=== PATIENT | female | born 1950 | race Caucasian/White ===

== ENCOUNTER 2025-06-23 12:22 | Inpatient (IN) | payer MEDICARE, SELFPAY ==
[2025-06-23] VITALS (16 sets, daily range): BP systolic 86–120; BP diastolic 53–97; BMI 24.0
[2025-06-23 09:26] LABS: Hematocrit 41.4 % (37.0-47.0); Hemoglobin 14.9 g/dL (12.0-16.0); Mean Corp Hgb Conc. 36.0 g/dL (33.0-37.0); Mean Corpuscular Volume 92.8 fL (81.0-99.0); Nucleated Red Blood Cells % 0 %; Platelet Count 164 10^3/uL (130-400); Red Cell Dist. Width 12.5 % (11.5-14.5)
--- NOTE | 2025-06-23 09:39 | ED.GENMED ---
History of Present Illness
General
Chief Complaint: Cardiac Symptoms
Source: patient
Exam Limitations: none
Time Seen by Provider: 06/23/25 09:17
Nursing documentation reviewed up to this point in time: agreed with
History of Present Illness
History of Present Illness:
Patient with history of hypertension and hypercholesterolemia, presents to ED secondary to worsening generalized weakness along with shortness of breath with exertion over the past 3 days. At onset of her symptoms, [place],
patient did experience upper chest pain, which lasted approximately 2 hours with spontaneous resolution. Patient has not had any recurrent chest pain since then. Chest pain described as discomfort, nonradiating, without any alleviating or
exacerbating factors. Denies fever or chills. Denies nausea or vomiting. Denies dizziness. Denies diaphoresis. Denies previous history of similar symptoms. Denies recent illness. Denies recent change in medications or diet.
Review of Systems
Review of Systems
Allergies reviewed?: Yes
All Other Systems: ROS reviewed and negative except as documented in HPI and ROS
Constitutional: Reports no symptoms
Respiratory: Reports trouble breathing
Cardiac: Reports chest pain
ABD/GI: Reports no symptoms
: Reports no symptoms
Musculoskeletal: Reports no symptoms
Skin: Reports no symptoms
Neurological: Reports weakness
Phy Exam
Physical Exam
Physical Exam:
Physical Exam
General: mild distress, not acutely ill. afebrile
Head: nc/at. eomi
Neck: supple. no meningeal signs.
Heart: bradycardic. no murmur
Lungs: no acute respiratory distress. clear bilaterally
Abdomen: normal bowel sounds. not tender.
Neuro: alert and oriented x 3. no focal neurological deficits
Skin: no rash
Psychiatric: well kept. interactive and cooperative
Extremities: no edema. no calf tenderness.
Course
Orders/Labs/Results
Orders:
Orders
06/23/25
Electrocardiogram (*1) Stat
Reason for Study: Chest Pain
06/23/25 09:06
Electrocardiogram (*1) Urgent
Reason for Study: Chest Pain
EKG- Treatment ONCE
06/23/25 09:17
Complete Blood Count/With Diff Urgent
Erythrocyte Sed Rate Urgent
Glycohemoglobin (HgbA1c) Urgent
NT-proBNP Urgent
Comment: ADD ON
Troponin I Urgent
06/23/25 09:38
Aspirin 325 mg PO NOW STA
06/23/25 09:41
CR Chest Portable - 1 View Urgent
Comment:
Reason For Exam: cp
Reason Study Needs to be Portable: Patient Unstable
06/23/25 Lunch
NPO
Allow oral meds: Yes
Allow clear liquids: No
NPO with Ice Chips: No
06/23/25 10:09
Heparin 4,000 units IV NOW STA
Nursing to Place Non Medication Order As Directed
Physician Order: PTT 6 hours after initial start of Heparin infusion
Above order entered?: Yes
06/23/25 10:12
Add On- LAB Routine
Tests Added?: ESR, CRP
06/23/25 10:13
PTT Urgent
Comment: Obtain baseline before beginning heparin infusion if not already collected
06/23/25 10:14
Echo 2D MMode Color/Doppler Urgent
Reason for Study: NSTEMI, CHB
06/23/25 10:15
Heparin 27918 Units/250 ml 25,000 units in 250 ml IV PER PROTOCOL
Weight to be used for heparin protocol in kilograms (kg):: 71.668
Protocol:: Cardiac Tx/Acute Coronary
PTT Goal Range to be used:: PTT 73 to 111 seconds
Order type:: Initial
INITIAL Infusion Dose (UNITS/KG/hr) & then follow protocol:: 12 units/kg/hr
Infusion Dose in UNITS/hr & then follow protocol (UNITS/hr):: 850
INFUSION RATE in mL/hr & then follow protocol (mL/hr):: 8.5
PTT less than or equal to 64 seconds:: Increase rate by 200 units/hr (+ 2 mL/hr)
PTT 64.1 to 72.9 seconds:: Increase rate by 100 units/hr (+ 1 mL/hr)
PTT 73 to 111 seconds:: Target Range. No change in rate.
PTT 111.1 to 130.9 seconds:: Decrease rate by 100 units/hr (- 1 mL/hr)
PTT 131 to 199.9 seconds:: HOLD for 1 hr. Then decrease rate by 200 units/hr (- 2 mL/hr)
PTT greater than or equal to 200 seconds:: HOLD for 2 hrs & Notify Provider. Then decrease by 200 units/hr (-
2 mL/hr)
Lab follow-up:: Each change, PTT q6h until 2 consecutive are therapeutic. Then PTT
daily.
06/23/25 10:25
Add On- LAB Urgent
Tests Added?: lyme progressive
06/23/25 10:36
Admit/Transfer Patient As Directed
Co-Sign Provider:
Level of Care: Inpatient admission
Assign to:: IVU
Physician / Group: Ronan
Diagnosis: NSTEMI, complete AVB
Reason for Hospitalization: NSTEMI, complete AVB
Expected length of stay greater than two midnights?: Yes
ELOS- Estimated Length of Stay in days: 5
I certify the patient meets the requirements for IP care: Yes
PRN Pain Medication Management As Directed
May give lesser potent ordered pain med per pt: Yes
preference::
Protocol:: Medication orders for pain may be administered in a
manner that supports deferring to patient preference
when the pt is:
- Requesting an ordered lesser potent pain medication.
Least to most potent pain medications are defined
as: acetaminophen < NSAID < tramadol < opioids
(morphine, oxycodone, hydromorphone).
- Requesting a lesser dose of the same medication IF
ORDERED.
- Requesting a less intrusive route of administration
if both routes are prescribed by the provider (PO <
IV).
06/23/25 10:37
Code Status As Directed
Resuscitation Status: Full Code
06/23/25 10:44
Add On- LAB Urgent
Tests Added?: TSH with reflex FT4, Lipids, HgbA1c
06/23/25 10:48
CARDIOLOGY CONSULT Urgent
Consulting Provider: Vishnu Bergeron
Was physician already notified: Yes
Reason for consult: NSTEMI, complete AVB
06/23/25 11:10
Add On- LAB Routine
Tests Added?: proBNP
06/23/25 11:24
Fentanyl Citrate/Pf [Sublimaze] 100 mcg .ROUTE .STK-MED ONE
Heparin 10,000 units .ROUTE .STK-MED ONE
Heparin 1000 Units/500 ml [Heparin] 1,000 units in 500 ml .ROUTE .STK-MED
Heparin Sodium,Porcine/Ns/Pf [Heparin 2000 Units/1000 ml] 2,000 unit in 1,000 ml .ROUTE .STK-MED
Lidocaine HCl/Pf [Xylocaine-Mpf 1% Vial] 100 mg .ROUTE .STK-MED ONE
Midazolam HCl [Versed] 2 mg .ROUTE .STK-MED ONE
Nitroglycerin [Tridil] 1,500 mcg .ROUTE .STK-MED ONE
Verapamil Injectable [Isoptin/Verapamil Injection] 5 mg .ROUTE .STK-MED ONE
06/23/25 11:37
C-Reactive Protein Urgent
Comment: ADDON
Cardiovascular Evaluation Urgent
Comprehensive Metabolic Panel Urgent
D-Dimer Urgent
Lyme Progressive Urgent
Comment: ADDON
PTT Urgent
Prothrombin Time Urgent
TSH Reflex To Free T4 Urgent
06/23/25 12:05
Lidocaine HCl/Pf [Xylocaine-Mpf 1% Vial] 100 mg .ROUTE .STK-MED ONE
06/23/25 13:08
Acetaminophen [Tylenol] 650 mg PO Q4HPRN PRN
Bisacodyl [Dulcolax] 10 mg RECTAL [id number] PRN
Docusate W/Senna [Senokot-S] 1 tablet PO BIDPRN PRN
Morphine Sulfate 2 mg IV Q4HPRN PRN
Nicotine [Nicoderm Transdermal] 14 mg TRANSDERM DAILY
Ondansetron Injectable [Zofran] 4 mg IV Q8HPRN PRN
Polyethylene Glycol Powder [Miralax] 17 grams PO DAILYPRN PRN
06/23/25 13:08
Urinalysis Reflex To Culture Urgent
Heparin Protocol- PTT Orders As Directed
PTT per Heparin protocol: -Obtain CBC and baseline PTT - if not already collected.
-Obtain PTT 6 hours from start of infusion. Then, every 6 hours until 2 consecutive
PTT's are therapeutic. Then, PTT Daily.
-With each rate change, obtain PTT every 6 hours until 2 consecutive PTT's are
therapeutic. Then, PTT Daily.
Activity As Directed
Activity Level: Out of Bed-Early Mobility
Notify MD As Directed
Notify physician if: PTT is greater than or equal to 200.
Vital Signs As Directed
Frequency: Per unit guidelines
06/23/25 13:42
COVID-19 Antigen Urgent
Source: Nasal Swab
Influenza A+B Rapid Molecular Urgent
BIA Source: Nasal Swab
Specimen Description:
06/23/25 21:08
Troponin I Q8H
06/23/25 22:00
Remove Patch [Remove Nicotine Patch] 1 patch REMOVE HS
06/24/25 05:08
Troponin I Q8H
06/24/25 06:00
Complete Blood Count/With Diff IN AM
Comprehensive Metabolic Panel IN AM
Magnesium IN AM
06/24/25 08:00
Losartan [Cozaar] 50 mg PO DAILY
Rosuvastatin Calcium [Crestor] 20 mg PO DAILY
06/25/25 06:00
Complete Blood Count/No Diff Q2D
Comment: notify provider: Platelet count < 130,000 or decrease by 50% from baseline
06/27/25 06:00
Complete Blood Count/No Diff Q2D
Comment: notify provider: Platelet count < 130,000 or decrease by 50% from baseline
06/29/25 06:00
Complete Blood Count/No Diff Q2D
Comment: notify provider: Platelet count < 130,000 or decrease by 50% from baseline
07/01/25 06:00
Complete Blood Count/No Diff Q2D
Comment: notify provider: Platelet count < 130,000 or decrease by 50% from baseline
07/03/25 06:00
Complete Blood Count/No Diff Q2D
Comment: notify provider: Platelet count < 130,000 or decrease by 50% from baseline
07/05/25 06:00
Complete Blood Count/No Diff Q2D
Comment: notify provider: Platelet count < 130,000 or decrease by 50% from baseline
07/07/25 06:00
Complete Blood Count/No Diff Q2D
Comment: notify provider: Platelet count < 130,000 or decrease by 50% from baseline
07/09/25 06:00
Complete Blood Count/No Diff Q2D
Comment: notify provider: Platelet count < 130,000 or decrease by 50% from baseline
Abnormal Lab Results
06/23/25 06/23/25
11:37
WBC 13.8 H 10^3/uL
(4.8-10.8)
MCH 33.4 H pg
(27.0-31.0)
Abs Immat Gran (auto) 0.1 H 10^3/uL
(0-0.05)
Absolute Neuts (auto) 12.0 H 10^3/uL
(1.4-6.5)
Absolute Lymphs (auto) 1.0 L 10^3/uL
(1.2-3.4)
Absolute Monos (auto) 0.7 H 10^3/uL
(0.1-0.6)
Neutrophils % 87.0 H %
(42.2-75.2)
Lymphocytes % 7.1 L %
(20.5-51.1)
APTT 80.1 H Sec
(23.4-35.0)
D-Dimer 0.85 H ug/mlFEU
(0.00-0.50)
Sodium 128 L mmol/L
(135-145)
Carbon Dioxide 21 L mmol/L
(22-30)
BUN 29 H mg/dl
(7-17)
Glucose 118 H mg/dl
(70-99)
AST 79 H U/L
(14-36)
ALT 63 H U/L
(0-35)
Troponin I 22.400 H* ng/ml
C-Reactive Protein 157.40 H mg/L
(0.0-10.00)
Total Protein 5.3 L g/dl
(6.3-8.2)
Albumin 3.3 L g/dl
(3.5-5.0)
06/23/25 09:17
06/23/25 11:37
Vital Signs
Initial and Last Documented VS:
Initial Vital Signs
Temp Pulse Resp BP Pulse Ox
98.8 F 42 16 120/97 96
06/23/25 09:02 06/23/25 09:02 06/23/25 09:02 06/23/25 09:02 06/23/25 09:02
Last Documented Vital Signs
Temp Pulse Resp BP Pulse Ox
98 F 41 20 106/80 97
06/23/25 13:03 06/23/25 15:00 06/23/25 13:03 06/23/25 15:00 06/23/25 13:03
MDM/Problems Addressed
MDM/Problems Addressed:
Patient evaluated immediately upon arrival with repeat EKG. EKG findings concerning for nonspecific ST changes along with complete heart block. Discussed with on-call Route Salesperson attending, Dr. Perry, who does not feel the patient needs emergent
catheterization, but most likely will require procedure during hospitalization.
Discussed with on-call cardiology, , and discussed all findings.
Patient given aspirin. Patient remains symptom-free at rest, while lying on stretcher. Blood pressure stable.
Patient placed on ZOLL pads
Initial troponin noted. Patient being evaluated by cardiology at bedside. Recommends heparin protocol
Critical care statement: A total of 40 minutes of critical care time was provided for this patient. This includes management of unstable vital signs, evaluation of the patient at bedside, reviewing the patient's pertinent medical records, discussion
with consultants, review of old EKGs and review of pertinent medical records. This time with separate from time utilized to perform the aforementioned documented procedures
*Pulse Oximetry
SaO2: 96
Oxygen Mode of Delivery: Room air
Patient hypoxic: no
*EKG
Interpreted by ED Provider?: Yes
EKG Intrepretation Date: 06/23/25
Heart Rate: 49
Rate: bradycardiac
Rhythm: sinus
Interval: third degree heart block
QRS Pattern: right bundle branch block
Ischemia: non-specific ST changes
*Critical Care Note
Total Time (30-74mins, 75-104mins- exclusive of procedures): 40 min
ED Attending Note
-
Portions of this chart may have been created with voice recognition software.� Occasional wrong word or��sound alike� substitutions may have occurred due to the inherent limitations of voice recognition software.
Discharge Plan
Departure
Patient Disposition: Admit
Date of Disposition: 06/23/25
Time of Disposition: 10:02
Admit to: IMU
Presentation/result/management discussed w/ accepting MD/DO: Hospitalist
Discharge Problem:
Non-ST elevation CA (NSTEMI), Complete heart block
Interventions
Interventions:
*Risk Screen - Suicide Last Done: 06/23/25 09:02
*General Assessment Last Done: 06/23/25 09:21
*Neglect/Abuse Screening Last Done: 06/23/25 09:02
*ED- Fall Risk Assessment Last Done: 06/23/25 09:02
*ED COVID-19 Vaccine History Last Done: 06/23/25 09:21
*Nursing Disposition Last Done: 06/23/25 11:25
ED- Cardiac Assessment Last Done: 06/23/25 09:21
ED- Pulmonary Assessment Last Done: 06/23/25 09:21
Discharge Date and Time
Discharge Date/Time: 06/23/25 11:25
[2025-06-23] MEDS: ASPIRIN 325 MG PO (09:40)
[2025-06-23 09:55] LABS: Troponin I 22.400 ng/ml
--- NOTE | 2025-06-23 10:12 | CON.CAR ---
Addendum entered and electronically signed by Parminder Choi MD 06/23/25 11:56:
Attending addendum: Patient seen and examined. PA note reviewed and findings independently confirmed by me. Briefly, this is a 75-year-old female who presented to [facility] with a history concerning for late presentation of a myocardial
infarction. She reported the onset of substernal chest pressure radiating across the chest on Saturday. Her symptoms persisted throughout the day and was associated with some nausea but no vomiting. By Saturday the symptoms began to improve but she
noted some dizziness and profound weakness today with minimal activity such as getting out of bed to brush her teeth. She is chronically maintained on oral Cardizem CD and losartan/hydrochlorothiazide. Home blood pressures are not well-controlled.
She also has a past history notable for hyperlipidemia.
Her electrocardiogram is notable for sinus rhythm with complete heart block. There was ST elevation in lead III and aVF. She has been chest pain-free for more than 48 hours and her troponin returned at 22.4 ng/mL.
Physical exam
GEN: AAO x 3.��No acute distress
HEENT:��NC/AT, sclera are anicteric,
NECK: Supple.��Normal JVP
LUNGS: Clear to bases bilaterally.��No wheezing or rhonchi
CV: Regular bradycardic. Normal S1/S2.��Murmur: None
ABD : Soft, NT, ND, No HSM.��Bowel sounds are present.
EXT: No CCE
NEURO: No focal neurologic deficits��
ECG: Normal sinus rhythm with complete heart block. ST elevation III and aVF
IMPRESSION:
-Late presentation of probable inferior wall VA complicated by complete heart block
-Hypertension
-Hyperlipidemia
-Tobacco abuse : Stopped 48 hours ago with chest discomfort
RECOMMENDATIONS:
-Patient will be referred for coronary angiography
-Escape rhythm in 40's.
-Further management decisions after angiogram completed.
-Will discuss further with EP service
Addendum entered and electronically signed by Jana Starks PA-C 06/23/25 11:13:
will also check lyme and TSH for completeness.
Original Note:
Consultation
Consultation Request
Date/Time Consultation Performed: 06/23/25
Requesting Provider: Dr. Morrison
Performing Provider: Jana Starks PA-C for Dr. Choi
Reason for Consultation: CHB
Medical History
-
Chief Complaint: weakness
History of Present Illness:
Patient is a 75-year-old female with past medical history of hypertension, hyperlipidemia, osteoarthritis, tobacco use who presents to [facility] ER today due to complaints of fatigue. She reports for the last several days she has felt lightheaded and
weak. Yesterday after taking her meds noted her BP and HR were low and today felt awful resulting in her coming to ER. On further questioning, patient reports on Saturday she developed chest discomfort which felt like a 'muscle pull' and wrapped
around to her back. She had associated nausea but no vomiting. She reports pain lingered for a while and does not think it resolved until Saturday. Denies current CP. EKG shows complete heart block with evidence of possible inferior infarct with Q
waves noted. Initial trop 22.4. Denies thyroid issues or recent tick bites, rashes. Cardiology consulted for evaluation.
PMH:
HTN
HLD
OA
Tobacco use
FH of CAD
Past Medical History
Past Medical History: Other (in HPI)
Social History
Tobacco: Smoker
Alcohol: None
Drug: None
Living: Alone
Employment: Retired
Family History
Family History: CAD
Allergies / Home Medications
Allergy/AdvReac Type Severity Reaction Status Date / Time
No Known Allergies Allergy Unverified 06/23/25 09:01
Review of Systems
-
History Source: Patient and Family
All other systems: Negative unless noted
Physical Exam
Vital Signs
Temp Pulse Resp BP Pulse Ox
98.8 F 42 16 120/97 96
06/23/25 09:02 06/23/25 09:02 06/23/25 09:02 06/23/25 09:02 06/23/25 09:41
Lab Results
06/23/25 09:17
Troponin I 22.400 ng/ml H* 06/23/25 09:17
Physical Exam
General: No Apparent Distress and Comfortable
HEENT: Normocephalic, Anicteric and Moist Mucous Membranes
Respiratory: Clear and Non Labored Respirations
Cardiac: S1/S2 and Regular Rhythm (bradycardic rhythm)
GI: Soft, Non Tender, Non Distended and Normal Bowel Sounds
Musculoskeletal: No Clubbing, No Cyanosis and No Edema
Skin: Warm and Dry
Neuro: AO x 3
Impression / Plan
-
Primary Box Toe Stitcher: none prior to admission
Assessment:
Presentation with weakness, fatigue
CP 06/20/25
Complete heart block
NSTEMI, suspected recent RCA infarct
Leukocytosis
HTN
HLD
OA
Tobacco use
FH of CAD
ECHO 06/23/25: pending
Plan:
-Patient presents for evaluation of weakness and fatigue noted over the last 72 hours, and noted by EKG to be in complete heart block
-Also reports episode of chest discomfort for most of the day on 06/20/2025, subsequently resolved. EKG also shows evidence of Q waves noted in inferior leads and troponin elevated at 22.4, suggestive of subacute RCA infarct
-324 mg aspirin given in ER
-Trend troponins
-Initiated on IV heparin
-Urgent echo
-Check CVE, hemoglobin A1c
-CXR with pulm vascularity at least top normal, check proBNP
-N.p.o. for cardiac catheterization later today. Reviewed cardiac catheterization procedure with patient and she is agreeable to proceed
-Hold outpatient diltiazem, last dose was 06/22. Follow rhythm
-Discussed if heart rate/rhythm does not improve, will likely require pacemaker
-smoking cessation encouraged. nicotine patch ordered at patient request
-Discussed with ER physician
-Discussed with patient, sister, and daughter at bedside
Data Reviewed
-
EKG: Tracing Personally Visualized and interpreted
Radiology: Report Reviewed by me
Labs: Labs Reviewed by me
Old Records: Reviewed
[2025-06-23] MEDS: HEPARIN 4000 UNITS IV (10:28)
[2025-06-23] MEDS: HEPARIN 25000 UNITS/250 ML IV ×2 (10:28→17:18)
[2025-06-23 10:46] LABS: APTT 30.2 Sec (23.4-35.0)
--- NOTE | 2025-06-23 10:46 | HPS.HSE ---
Family Physician
-
Family Physician: Miguel Colin
Chief Complaint
-
weakness
History of Present Illness
75yo F with HTN and HLD came with worsening generalized weakness especially on excertion started 5 days before admisison. Patient noticed it started after 1 [place] of circumferential [place] Pain did not reocurr
thereafter. No fevers, tick bites reported. In ED found complete AVB and significantly elevated troponin, concerning for NSTEMI. CMP is not available at the time of this admission
Medical History
Past Medical History
Past Medical History: Reports Other
Additional Past Medical History:
see above
Past Surgical History: Reports None
Social History
Alcohol: Occasional
Drug: None
Family History
Family History: Not pertinent
Allergies / Home Medications
Allergies reflects when Allergies were last updated in [employer].
Home Medications with original date entered in [employer]
Allergy/Medication List:
Allergies
Allergy/AdvReac Type Severity Reaction Status Date / Time
No Known Allergies Allergy Unverified 06/23/25 09:01
Home Medications
diltiazem HCl 360 mg capsule,extended release 24 hr 360 mg PO DAILY 06/23/25
losartan 100 mg-hydrochlorothiazide 25 mg tablet 1 tab PO DAILY 06/23/25
meloxicam 7.5 mg tablet 7.5 mg PO BIDPRN PRN arthritis pain 06/23/25
rosuvastatin 20 mg tablet 20 mg PO MOWEFR@1800 06/23/25
Review of Systems
-
History Source: Patient
A 12 point ROS was completed and negative except as noted: Yes
Constitutional: Reports See HPI
Physical Exam
Vital Signs
Vital Signs
Temp Pulse Resp BP Pulse Ox
98.8 F 91 21 102/63 96
06/23/25 09:02 06/23/25 10:15 06/23/25 10:15 06/23/25 10:00 06/23/25 10:15
Physical Exam
General: Well Developed, Well Nourished and No Apparent Distress
HEENT: NormoCephalic, Anicteric and Moist mucous membranes
Respiratory: Clear; No Wheezes or Crackles
Cardiac: S1/S2 and Irregular Rhythm
GI: Soft, Non Tender and Non Distended
Genito-urinary: No costovertebral tender
Musculoskeletal: No Clubbing, No Cyanosis and No Edema
Skin: Warm; No Rash or Jaundice
Neuro: Awake, Alert, Oriented and AO x 3
Psych: Calm
Laboratory Results
-
06/23/25 09:17
Laboratory Results
Total Bilirubin Cancelled 06/23/25 09:17
AST Cancelled 06/23/25 09:17
ALT Cancelled 06/23/25 09:17
Alkaline Phosphatase Cancelled 06/23/25 09:17
Troponin I 22.400 ng/ml H* 06/23/25 09:17
Data Reviewed
-
Diagnostic Radiology: Report Reviewed by me
Lab Data: Labs Reviewed by me
Impression/Plan
-
A/P:
#NSTEMI
#COmplete AVB
ASA, heparin drip, nitro SL PRN
serial trop, check Mg, TSH
Echo
Cardiology consult
Chest XR without significant abnormality
telemetry
Atropin, trancutaneous PPM - as per cardiology
HgbA1c, Lipids, TSH
check Lyme disease
ESR minimally elevated, CRP WNL
#Leukocytosis
#Elevated ddimer
No significant elevation of ddimer- reasonable to start with LE US with recent Hx of LE swelling, while patient already on heparin drip
patient reported no fevers, no respiratory, abdominal or urinary symptoms
check COVID-19, Influenza PCR and UA
Check Bcx
CTA chest if signs of RH failure on Echo or hypoxia
#Hyponatremia
check U Osm and John
follow BMP
based on results of Uosm - further mgmt
#Elevated aminotransferases
Hepatitis profile
check CPK
#Essential HTN
hold CCB
cont Losartan, follow BP
#HLD
cont Rosuvastatin, change to daily
check lipids
#Nicotine dependency
Nicoderm PRN
DVT ppx hep drip
FUll code
I have spent at least 77min reviewing chart, test results, communication with consultants and providing direct patient care
[2025-06-23 12:08] LABS: Glycohemoglobin (HgbA1c) 5.3 % (4.0-5.6)
[2025-06-23 12:36] LABS: ACT-LR - POC 195 Seconds (116-155)
[2025-06-23 12:41] LABS: INR 1.09; PT 14.6 Sec (11.4-14.6)
[2025-06-23 12:42] LABS: APTT 80.1 Sec (23.4-35.0)
[2025-06-23 12:43] LABS: D-Dimer 0.85 ug/mlFEU (0.00-0.50)
[2025-06-23 12:55] LABS: ALT (SGPT) 63 U/L (0-35); AST (SGOT) 79 U/L (14-36); Albumin 3.3 g/dl (3.5-5.0); Alkaline Phosphatase 98 U/L (38-126); Blood Urea Nitrogen 29 mg/dl (7-17); Calcium 9.1 mg/dl (8.4-10.2); Carbon Dioxide 21 mmol/L (22-30); Chloride 101 mmol/L (98-107); Estimated Creatinine Clearance 72 ml/min; Glucose 118 mg/dl (70-99); Potassium 3.5 mmol/L (3.5-5.1); Sodium 128 mmol/L (135-145); Total Protein 5.3 g/dl (6.3-8.2); Very Low Density Lipoprotein 14 mg/dl (0-30); eGFR > 60.00
[2025-06-23 13:16] LABS: C-Reactive Protein 157.40 mg/L (0.0-10.00)
[2025-06-23 13:27] LABS: HDL Cholesterol 41 mg/dl; LDL Cholesterol, Calculated 58 mg/dl
--- NOTE | 2025-06-23 13:29 | PTCARENOTE ---
Patient received from the dental laboratory technician. AO x3. A-fib HR 38, irregular, BP 100/56, POX 96% on room air. Right radial band dry and intact and right femoral dressing CDI. Will keep NPO for now, call guajardo in reach
--- NOTE | 2025-06-23 14:12 | ITS.CL.CATH ---
[employer] - Catheterization
Cardiac Catheterization
Procedure Report:
LEFT HEART CATHETERIZATION
Date of Procedure: June 23, 2025
Referring: Dr. Parminder Choi
PROCEDURES:
1. Left heart catheterization with coronary and single-plane left ventriculography
INDICATION: This is a 75-year-old female with a past medical history notable for tobacco abuse, hypertension, and hyperlipidemia who presented to [facility] 4 days following an episode of substernal chest tightness. She has been chest
pain-free for 72 hours. Her presenting electrocardiogram is in complete heart block with inferior ST segment elevation and associated Q waves. She has been chest pain-free and I suspect this was a completed infarct at the time of presentation with
a initial troponin of 22.5 nanograms per milliliter in the absence of any symptoms. She did report profound dizziness and near syncopal symptoms this morning as she was in the bathroom trying to brush her teeth. She did continue to take her
Cardizem CD which may be contributing to the complete heart block as well.
ACCESS: Right radial artery, 6 Dutch sheath and right common femoral vein, 6 Dutch sheath
HEMODYNAMICS : (mmHg)
AO (s/d) : 96/48, 66
LV (s/d) : 97/13
LVEDP : 23
CORONARY FINDINGS
DOMINANCE: Right
LEFT MAIN: Normal
LEFT ANTERIOR DESCENDING: The LAD has tandem 50% proximal stenosis and only minor luminal irregularities noted in the mid LAD. The distal vessel wraps completely around the apex supplying a significant portion of the inferior wall. Apical LAD and
septal collaterals are noted to fill the PDA.
CIRCUMFLEX: The circumflex is a nondominant vessel supplying 2 obtuse marginal branches. The circumflex has diffuse luminal irregularities. OM1 has a 50% proximal stenosis. OM 2 has a 40% proximal stenosis
RIGHT CORONARY ARTERY: The right coronary artery is a dominant vessel with a 50% proximal stenosis. The mid right coronary artery becomes 100% occluded with the distal vessel noted to fill via left to right collaterals from septal cascade
VENTRICULOGRAPHY: Left ventriculography is performed in STEVENS projection. The digital single-plane left ventricular ejection fraction is estimated at 50-55% with posterior basal hypokinesis noted.
SEDATION: 25 minutes of procedural sedation was utilized. An independent medical diagnostic radiographer was present to assist with and help manage the patient's level of consciousness and physiologic status.
RADIATION SUMMARY: Fluoro Time (min): 4.9, Dose (mGy): 521, DAP (Gy.cm2) : 44.2
Closure Device: TR band
CONCLUSIONS
1. Late presentation of inferior wall myocardial infarction for which she has been chest pain-free for more than 72 hours.
2. Complete heart block secondary to inferior wall myocardial infarction
3. Atrial fibrillation developed during the coronary angiogram with continued heart block
RECOMMENDATIONS
1. Escape rhythm has been stable and blood pressures have been stable. We will hold on immediate placement of a permanent pacemaker. We will also hold off on placement of a temporary pacemaker wire. I am hopeful that rhythm will return in the
next 24-48 hours. If she remains in complete heart block then we will proceed with placement of a permanent pacemaker
2. Start heparin and continue aspirin.
3. Continue to trend serial troponin levels
4. Hold all AV bhargavi blocking drugs
Copy to: Dr. Parminder Choi
[2025-06-23] MEDS: NICODERM TRANSDERMAL 14 MG TRANSDERM (14:13)
[2025-06-23 14:15] LABS: COVID-19 Antigen Negative (Negative)
[2025-06-23] MEDS: NSS 1000 IV (14:19)
[2025-06-23 14:50] LABS: Troponin I 18.900 ng/ml
--- NOTE | 2025-06-23 15:34 | PTCARENOTE ---
Patient in CHB, HR 50-60's. Bedrest maintained. Dr. Choi aware
[2025-06-23] MEDS: CRESTOR 20 MG PO (17:27)
[2025-06-23 18:14] LABS: Blood Urea Nitrogen 25 mg/dl (7-17); Calcium 8.4 mg/dl (8.4-10.2); Carbon Dioxide 25 mmol/L (22-30); Chloride 101 mmol/L (98-107); Estimated Creatinine Clearance 63 ml/min; Glucose 140 mg/dl (70-99); Potassium 3.1 mmol/L (3.5-5.1); Sodium 128 mmol/L (135-145); eGFR > 60.00
--- NOTE | 2025-06-23 19:24 | PTCARENOTE ---
K 3.1, order received for 40 mEq of k-Dur
[2025-06-23 19:39] LABS: Magnesium 2.1 mg/dl (1.6-2.3)
[2025-06-23] MEDS: KCL 40 MEQ PO (19:53)
[2025-06-23 21:16] LABS: Urine Character Clear (Clear)
[2025-06-23 21:27] LABS: Urine Red Blood Cell 0-2 /HPF (0-2); Urine Squamous Cell 26-30 /LPF (Few)
--- NOTE | 2025-06-23 22:35 | PTCARENOTE ---
Received patient at change of shift. 3rd degree HB on the monitor, HR in the 40-60s. R radial and groin dressings CDI. Urinalysis obtained. No complaints from pt at this time, call guajardo within reach.
[2025-06-23] MEDS: REMOVE NICOTINE PATCH 1 PATCH REMOVE (23:05)
[2025-06-23 23:20] LABS: APTT 36.4 Sec (23.4-35.0)
[2025-06-23 23:36] LABS: Troponin I 19.700 ng/ml
[2025-06-24] VITALS (7 sets, daily range): BP systolic 102–132; BP diastolic 49–73
[2025-06-24 05:44] LABS: Hematocrit 37.4 % (37.0-47.0); Hemoglobin 13.3 g/dL (12.0-16.0); Mean Corp Hgb Conc. 35.6 g/dL (33.0-37.0); Mean Corpuscular Volume 93.0 fL (81.0-99.0); Nucleated Red Blood Cells % 0 %; Platelet Count 161 10^3/uL (130-400); Red Cell Dist. Width 12.6 % (11.5-14.5)
[2025-06-24 06:07] LABS: ALT (SGPT) 60 U/L (0-35); AST (SGOT) 58 U/L (14-36); Albumin 3.2 g/dl (3.5-5.0); Alkaline Phosphatase 85 U/L (38-126); Blood Urea Nitrogen 23 mg/dl (7-17); Calcium 9.2 mg/dl (8.4-10.2); Carbon Dioxide 22 mmol/L (22-30); Chloride 106 mmol/L (98-107); Estimated Creatinine Clearance 72 ml/min; Glucose 96 mg/dl (70-99); Magnesium 2.2 mg/dl (1.6-2.3); Potassium 3.6 mmol/L (3.5-5.1); Sodium 132 mmol/L (135-145); Total Protein 5.2 g/dl (6.3-8.2); eGFR > 60.00
[2025-06-24 06:18] LABS: Troponin I 17.700 ng/ml
[2025-06-24 06:25] LABS: APTT 36.2 Sec (23.4-35.0)
--- NOTE | 2025-06-24 07:53 | W.PN.CARDCBS ---
Addendum entered and electronically signed by Singh Tirado MD 06/24/25 09:15:
I saw and examined the patient.
The Vp Delivery's note was reviewed and I agree with the note.
Comment: Briefly, 75-year-old woman past medical history of hypertension, hyperlipidemia and current smoker who presented for evaluation of several days of weakness and fatigue found to have late presentation of an inferior IA complicated by
complete heart block.
Patient tells me approximately 5 days ago she had chest discomfort radiating to the shoulders which she felt was related to muscle soreness. Over the next several days had progressively worsening fatigue and weakness and ultimately came to
[place] emergency department on 06/23/2025 for evaluation. Initial ECG showed complete heart block with inferior infarct pattern. Troponin was elevated and peaked at 22.4. Echo showed overall preserved LV function. She underwent invasive
coronary angiography yesterday and was found to have occluded mid RCA with [id number] collaterals. Of note patient developed paroxysmal A-fib during catheterization.
Patient remains chest pain-free and is resting comfortably in the IVU. Has not been experiencing any lightheadedness or dizziness but she has largely been in bed over the past day.
In review of telemetry she is predominantly in sinus tachycardia with complete heart block, but there is occasional 2-1 conduction.
Would plan to continue to monitor on telemetry overnight and evaluate the need for permanent pacemaker tomorrow if she does not regain her [place] conduction.
For now plan is for aspirin and heparin with possible transition to Eliquis/Plavix prior to discharge
Continue home rosuvastatin and losartan
For now avoid AV bhargavi blockers
Eventual cardiac rehab
Rest per Jana Starks
Original Note:
Today's Communication / Plan
-
follow rhythm
continue IV heparin
continue asa, crestor, cozaar
Impression / Plan
-
Primary [place]man: none prior to admission
Assessment:
Presentation with weakness, fatigue
CP 06/20/25
Complete heart block
Late presentation inferior IA, peak trop 22.4
Leukocytosis
Paroxysmal atrial fibrillation
Hyponatremia
mild LFT elevation
HTN
HLD
OA
Tobacco use
FH of CAD
ECHO 06/23/25: EF 54%, posterior basal wall hypokinetic, mild AR, trace MR, trace TR
Plan:
-Patient presents for evaluation of weakness and fatigue noted over the last 72 hours, after chest discomfort on 06/20/25.
-initial EKG with complete heart block and trop 22.4 so suspected late presentation inferior IA
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 plan for medical mgmt
-observe on tele, overnight noted to be in high grade AV block with intermittent conduction on tele overnight. holding OP diltiazem, last dose 06/22. had some afib in labor economist as well. hopeful that conduction will continue to improve
-continue IV heparin, asa
-LDL 58. OP crestor dose increased to 20mg QPM (was MWF prior to admission)
-may require PPM prior to DC
-echo with results as above, EF preserved, discussed with patient 06/24
-proBNP elevated at 9430, however given RV infarct with relative hypotension, will hold off on diuresis at this time. no c/o SOB
-replete K. continue OP cozaar, holding OP HCTZ
-follow LFTs, mildly elevated
-smoking cessation encouraged
-Discussed with nursing, EP
Progress Note - Flagman
Subjective
Date of Service: June 24, 2025
reports feeling tired. no CP, SOB, dizziness
Objective
Labs:
06/24/25 05:17
06/24/25 05:17
Labs
Hgb 13.3 g/dL (12.0-16.0) 06/24/25 05:17
Hct 37.4 % (37.0-47.0) 06/24/25 05:17
Plt Count 161 10^3/uL (130-400) 06/24/25 05:17
PT 14.6 Sec (11.4-14.6) 06/23/25 11:37
PT Cancelled 06/23/25 11:37
INR 1.09 06/23/25 11:37
INR Cancelled 06/23/25 11:37
APTT 36.2 Sec (23.4-35.0) H 06/24/25 05:17
Sodium 132 mmol/L (135-145) L 06/24/25 05:17
Potassium 3.6 mmol/L (3.5-5.1) 06/24/25 05:17
BUN 23 mg/dl (7-17) H 06/24/25 05:17
Creatinine 0.7 mg/dL (0.6-1.0) 06/24/25 05:17
Glucose 96 mg/dl (70-99) 06/24/25 05:17
Troponins
06/23/25 06/23/25 06/23/25
09:17 13:42 14:11
Troponin I 22.400 H* Cancelled 18.900 H*
06/23/25 06/24/25
23:02 05:17
Troponin I 19.700 H* 17.700 H*
Vital Signs and I&O:
Vital Signs
Temp Pulse Resp BP Pulse Ox
97.9 F 127 15 113/52 98
06/24/25 07:24 06/24/25 07:30 06/24/25 07:24 06/24/25 07:25 06/24/25 07:24
Vital Signs
Temp Pulse Resp BP Pulse Ox
97.9 F 127 15 113/52 98
06/24/25 07:24 06/24/25 07:30 06/24/25 07:24 06/24/25 07:25 06/24/25 07:24
Intake & Output
09/01/25 09/02/25 09/03/25 09/04/25
07:59 07:59 07:59 07:59
Intake Total 1276 / 1276
Output Total 475 / 475
Balance 801 / 801
Physical Exam
Physical Exam
GEN: No distress, awake, alert, oriented x3
HEENT: supple, anicteric, mmm, eomi
LUNGS: CTA B/L, no wheezes/rales
CV: Irreg and nima, S1/S2, no murmur
ABD: soft, BS+, NT/ND
EXT: No cyanosis, clubbing, edema
NEURO: Gross non-focal
SKIN: Warm, pink, dry. No rash
[2025-06-24] MEDS: LOW STRENGTH ASPIRIN 81 MG PO (08:12)
[2025-06-24] MEDS: NICODERM TRANSDERMAL 14 MG TRANSDERM (08:12)
[2025-06-24] MEDS: KCL 20 MEQ PO (08:12)
[2025-06-24] MEDS: COZAAR PO (08:13)
--- NOTE | 2025-06-24 09:30 | W.PN.HOSP.TC ---
Today's Communication/Plan
-
see PN
Assessment / Plan
Assessment / Plan
75yo F with HTN and HLD came with worsening generalized weakness especially on excertion started 5 days before admisison. Patient noticed it started after 1 day of circumferential chest pain, found hypokinetic posterobasal wall and managed for late
presentation of SC, and complete AVB. Cardiology monitoring the rhythm before making decision for PPM. Had episode of Afib during catheterization, so will be started on ELiquis
A/P:
#NSTEMI
#Complete AVB
ASA, heparin drip, nitro SL PRN
serial trop, check Mg, TSH
Echo: preserved EF, posteriobasal hypokinesis and no RV dysfunction
Cardiology consult
Cath on 06/24/25 without stenting
Chest XR without significant abnormality
telemetry
HgbA1c 5.3
LDL 58
TSH WNL
check Lyme disease
ESR WNL, CRP elevated, but non-specific - repeat as outpatient
#Leukocytosis
#Elevated ddimer
Elevated ddimer most liekly reactive as no RH failure, no hypoxia and leukocytosis resolved
with no LE swelling - no indication for US LE
patient reported no fevers, no respiratory, abdominal or urinary symptoms
COVID-19, Influenza PCR and UA neg
Bcx NTD
#Hyponatremia
Uosm low
most likely 2/2 HCTZ
stop diuretics
#Elevated aminotransferases
Hepatitis profile
CPK WNL
#Essential HTN
hold CCB
cont Losartan, follow BP
#HLD
cont Rosuvastatin, change to daily
check lipids
#Nicotine dependency
Nicoderm PRN
counseled on smoking cessation
DVT ppx hep drip
FUll code
I have spent at least 55min reviewing chart, test results, communication with consultants and providing direct patient care
Anticipated Discharge: > 48 hours
Subjective/Interval History
-
Date of Service: June 24, 2025
Objective Data
-
Labs:
Laboratory Results
06/23/25 06/24/25 06/24/25
23:02 05:17 12:30
WBC 8.7
Hgb 13.3
Hct 37.4
Plt Count 161
APTT 36.4 H 36.2 H Pending
Sodium 132 L
Potassium 3.6
Chloride 106
Carbon Dioxide 22
BUN 23 H
Creatinine 0.7
Glucose 96
Calcium 9.2
Total Bilirubin 1.1
AST 58 H
ALT 60 H
Alkaline Phosphatase 85
Vital Signs:
Vital Signs
Temp Pulse Resp BP Pulse Ox
97.9 F 127 15 113/52 98
06/24/25 07:24 06/24/25 07:30 06/24/25 07:24 06/24/25 07:25 06/24/25 07:24
I&O
06/23/25 06/24/25 06/25/25
06:59 06:59 06:59
Intake Total 1276 / 1276
Output Total 475 / 475
Balance 801 / 801
Review of Systems
-
History Source: Patient
All other systems: Reviewed and negative
Physical Exam
-
General: No Apparent Distress
HEENT: Normocephalic
Respiratory: Clear to Auscultation
GI: Soft, Nontender and Nondistended
Musculoskeletal: No Clubbing, No Cyanosis and No Edema
Neuro: Awake, Alert, Oriented and AO x 3
Psych: Calm
--- NOTE | 2025-06-24 10:50 | PTCARENOTE ---
Assumed care. Patient awake and alert. CHB, PVC's HR 40-60's. Complaints of general fatigue, no chest pain or shortness of breath. Heparin gtt infusing per protocol at 1250 units/hr. Call guajardo in reach
--- NOTE | 2025-06-24 12:22 | CM ---
spoke to pt in room, nazanin milan, lives alone in a 1 story condo with no steps to enter. she denies any dme's or dc planning needs. plan is for dc to home when medically stable.
[2025-06-24 13:56] LABS: APTT 54.7 Sec (23.4-35.0)
[2025-06-24 16:01] LABS: Lyme Antibody Screen, EIA Negative (Negative)
[2025-06-24 19:52] LABS: APTT 56.8 Sec (23.4-35.0)
[2025-06-24 19:53] LABS: Hepatitis B Surface Antigen Negative (Negative)
[2025-06-24] MEDS: CRESTOR 20 MG PO (19:53)
[2025-06-24 20:11] LABS: Hepatitis C Antibody Negative (Negative)
--- NOTE | 2025-06-24 22:11 | PTCARENOTE ---
Rec'd pt at change of shift. Pt AAO*3, VSS, and in 3rd degree HB on TELE monitor. Pt reports feeling tired however denies any visual changes, lightheadedness, or weakness. Pt bp stable and pt agreed to only ambulate with staff assistance. Pt NPO
after midnight for possible pacemaker. First round of CHG wipes complete. Pt resting with call guajardo in reach. See MAR and flowchart for full pt care and assessment.
[2025-06-25] MEDS: REMOVE NICOTINE PATCH REMOVE (00:20)
[2025-06-25 02:31] VITALS: BP 133/75
[2025-06-25 02:59] LABS: Hematocrit 39.6 % (37.0-47.0); Hemoglobin 14.1 g/dL (12.0-16.0); Mean Corp Hgb Conc. 35.6 g/dL (33.0-37.0); Mean Corpuscular Volume 93.4 fL (81.0-99.0); Platelet Count 174 10^3/uL (130-400); Red Cell Dist. Width 12.7 % (11.5-14.5)
[2025-06-25 03:04] LABS: APTT 72.1 Sec (23.4-35.0)
[2025-06-25 03:29] VITALS: BMI 28.3
[2025-06-25 03:50] LABS: Blood Urea Nitrogen 20 mg/dl (7-17); Calcium 9.1 mg/dl (8.4-10.2); Carbon Dioxide 20 mmol/L (22-30); Chloride 107 mmol/L (98-107); Estimated Creatinine Clearance 95 ml/min; Glucose 118 mg/dl (70-99); Potassium 3.6 mmol/L (3.5-5.1); Sodium 134 mmol/L (135-145); eGFR > 60.00
[2025-06-25] MEDS: HEPARIN 25000 UNITS/250 ML IV ×2 (04:56→18:57)
[2025-06-25 07:19] VITALS: BP 130/76
[2025-06-25] MEDS: COZAAR 50 MG PO (07:41)
[2025-06-25] MEDS: NICODERM TRANSDERMAL 14 MG TRANSDERM (07:42)
[2025-06-25] MEDS: LOW STRENGTH ASPIRIN 81 MG PO (07:42)
--- NOTE | 2025-06-25 10:31 | W.PN.HOSP.TC ---
Today's Communication/Plan
-
cardiology for decision if PPM to be placed
Assessment / Plan
Assessment / Plan
75yo F with HTN and HLD came with worsening generalized weakness especially on exertion started 5 days before admission. Patient noticed it started after 1 day of circumferential chest pain, found hypokinetic posterobasal wall and managed for late
presentation of PR, and complete AVB. Cardiology monitoring the rhythm before making decision for PPM. Had episode of Afib during catheterization, so will be started on Eliquis.
A/P:
#NSTEMI
#Complete AVB
ASA, heparin drip, nitro SL PRN
serial trop, check Mg, TSH
Echo: preserved EF, posteriobasal hypokinesis and no RV dysfunction
Cardiology consult
Cath on 06/24/25 without stenting
Chest XR without significant abnormality
telemetry
HgbA1c 5.3
LDL 58
TSH WNL
Lyme disease neg
ESR WNL, CRP elevated, but non-specific - repeat as outpatient
#Leukocytosis
#Elevated ddimer
Elevated ddimer most liekly reactive as no RH failure, no hypoxia and leukocytosis resolved
with no LE swelling - no indication for US LE
patient reported no fevers, no respiratory, abdominal or urinary symptoms
COVID-19, Influenza PCR and UA neg
Bcx NTD
#Hyponatremia
resolved
Uosm low
most likely 2/2 HCTZ
stop diuretics
#Elevated aminotransferases
Hepatitis profile neg
CPK WNL
outpatient follow up with PCP
#Essential HTN
hold CCB
cont Losartan, follow BP
#HLD
cont Rosuvastatin, change to daily
check lipids
#Nicotine dependency
Nicoderm PRN
counseled on smoking cessation
DVT ppx hep drip
FUll code
I have spent at least 51min reviewing chart, test results, communication with consultants and providing direct patient care
Anticipated Discharge: Within 24 hours
Subjective/Interval History
-
Date of Service: June 25, 2025
Objective Data
-
Labs:
Laboratory Results
06/25/25 06/25/25
02:38 11:40
WBC 9.2
Hgb 14.1
Hct 39.6
Plt Count 174
APTT 72.1 H Pending
Sodium 134 L
Potassium 3.6
Chloride 107
Carbon Dioxide 20 L
BUN 20 H
Creatinine 0.6
Glucose 118 H
Calcium 9.1
Vital Signs:
Vital Signs
Temp Pulse Resp BP Pulse Ox
98.6 F 108 18 130/76 96
06/25/25 07:20 06/25/25 08:00 06/25/25 07:20 06/25/25 07:19 06/25/25 08:00
I&O
06/24/25 06/25/25 06/26/25
06:59 06:59 06:59
Intake Total 1276 / 1276 960 / 960
Output Total 475 / 475 300 / 300
Balance 801 / 801 660 / 660
Review of Systems
-
History Source: Patient
All other systems: Reviewed and negative
Physical Exam
-
General: No Apparent Distress
Cardiac: Irregular Rhythm
Neuro: Awake, Alert, Oriented and AO x 3
Psych: Calm
[2025-06-25 11:03] VITALS: BMI 28.2
[2025-06-25 11:24] VITALS: BP 129/66
[2025-06-25 13:15] LABS: APTT 106.3 Sec (23.4-35.0)
--- NOTE | 2025-06-25 14:35 | W.PN.CARDCBS ---
Addendum entered and electronically signed by Jose Alfredo Bautista DO 06/25/25 17:39:
I saw and examined the patient.
The Service Station Console Operator's note was reviewed and I agree with the note.
Comment:
Patient resting comfortably. Denies any chest pain, shortness of breath, palpitations, weakness, near-syncope syncope.
Telemetry shows episodes of improving AV conduction. Appears to be sinus rhythm with second-degree type I with intermittent bundle branch block and rare PVCs.
Continue to hold AV bhargavi blocking agents and monitor on telemetry for recovery of AV conduction. No indication for pacemaker at this current time.
Continue goal-directed therapy for CAD
Repeat EKG in a.m.
Original Note:
Today's Communication / Plan
-
Follow rhythm, hopeful for continued return to baseline conduction
Hold AV bhargavi blockers
Continue aspirin, IV heparin, Cozaar, Crestor
Repeat LFTs in a.m.
Impression / Plan
-
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
Assessment:
Presentation with weakness, fatigue
CP 06/20/25
Complete heart block
Late presentation inferior CA, peak trop 22.4
Leukocytosis
Paroxysmal atrial fibrillation
Hyponatremia
mild LFT elevation
HTN
HLD
OA
Tobacco use
FH of CAD
ECHO 06/23/25: EF 54%, posterior basal wall hypokinetic, mild AR, trace MR, trace TR
Plan:
-Patient presents for evaluation of weakness and fatigue noted over the last 72 hours, after chest discomfort on 06/20/25.
-initial EKG with complete heart block and trop 22.4 so suspected late presentation inferior CA
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 plan for medical mgmt
- Conduction appears to be improving on review of telemetry overnight. Heart rates also improving. Patient remains without dizziness or lightheadedness. Continue to hold outpatient diltiazem. Holding off on pacemaker for now, as hopeful that
conduction will continue to return. If no pacemaker, would plan for outpatient rhythm*monitor
- Continue aspirin, IV heparin
-LDL 58. OP crestor dose increased to 20mg QPM (was MWF prior to admission)
-echo with results as above, EF preserved, discussed with patient 06/24
-proBNP elevated at 9430, however given RV infarct with relative hypotension, will hold off on diuresis at this time. no c/o SOB
-replete K. continue OP cozaar, holding OP HCTZ
- Repeat LFTs in a.m.
-smoking cessation encouraged
-Discussed with nursing. Discussed with daughter Sissy via telephone
Progress Note - Construction Carpenters Helper
Subjective
Date of Service: June 25, 2025
No chest pain, shortness of breath, dizziness or lightheadedness
Objective
Labs:
06/25/25 02:38
06/25/25 02:38
Labs
Hgb 14.1 g/dL (12.0-16.0) 06/25/25 02:38
Hct 39.6 % (37.0-47.0) 06/25/25 02:38
Plt Count 174 10^3/uL (130-400) 06/25/25 02:38
PT 14.6 Sec (11.4-14.6) 06/23/25 11:37
PT Cancelled 06/23/25 11:37
INR 1.09 06/23/25 11:37
INR Cancelled 06/23/25 11:37
APTT 106.3 Sec (23.4-35.0) H 06/25/25 12:56
Sodium 134 mmol/L (135-145) L 06/25/25 02:38
Potassium 3.6 mmol/L (3.5-5.1) 06/25/25 02:38
BUN 20 mg/dl (7-17) H 06/25/25 02:38
Creatinine 0.6 mg/dL (0.6-1.0) 06/25/25 02:38
Glucose 118 mg/dl (70-99) H 06/25/25 02:38
Troponins
06/23/25 06/23/25 06/23/25
09:17 13:42 14:11
Troponin I 22.400 H* Cancelled 18.900 H*
06/23/25 06/24/25
23:02 05:17
Troponin I 19.700 H* 17.700 H*
Vital Signs and I&O:
Vital Signs
Temp Pulse Resp BP Pulse Ox
98.3 F 55 17 130/76 97
06/25/25 11:22 06/25/25 11:22 06/25/25 11:22 06/25/25 07:19 06/25/25 11:22
Vital Signs
Temp Pulse Resp BP Pulse Ox
98.3 F 55 17 130/76 97
06/25/25 11:22 06/25/25 11:22 06/25/25 11:22 06/25/25 07:19 06/25/25 11:22
Intake & Output
06/23/25 06/24/25 06/25/25 06/26/25
07:59 07:59 07:59 07:59
Intake Total 1276 / 1756 960 / 960
Output Total 475 / 775 300 / 300
Balance 801 / 981 660 / 660
Physical Exam
Physical Exam
GEN: No distress, awake, alert, oriented x3
HEENT: supple, anicteric, mmm, EOMI
LUNGS: CTA bilaterally, no wheezes/rales
CV: Irreg, S1/S2, no murmur
ABD: soft, BS+, NT/ND
EXT: No cyanosis, clubbing, edema
NEURO: Gross non-focal
SKIN: Warm, pink, dry. No rash
--- NOTE | 2025-06-25 15:22 | PTCARENOTE ---
Pt received this am with no c/o of any chest pain or sob. Pt stated she had mild dizziness when she sat up. Pt assisted oob to the chair and tolerated well for several hours. Pt maintained NPO for poss pacemaker until later in the day when diet was
resumed. Pt had CHB this am but now noting wenkebach, rate in the 70's to 90's.
[2025-06-25 16:15] VITALS: BP 123/69
[2025-06-25] MEDS: CRESTOR 20 MG PO (17:08)
[2025-06-25 18:45] VITALS: BP 122/70
[2025-06-25 20:00] LABS: APTT 107.7 Sec (23.4-35.0)
[2025-06-25 22:42] VITALS: BP 124/84
[2025-06-25] MEDS: REMOVE NICOTINE PATCH 1 PATCH REMOVE (22:43)
--- NOTE | 2025-06-25 22:46 | PTCARENOTE ---
Received patient at change of shift. HB on the monitor, HR in the 70s. Heparin running as per protocol, see documentation. No complaints from pt at this time, call guajardo within reach.
[2025-06-26] VITALS (7 sets, daily range): BP systolic 114–142; BP diastolic 73–93
[2025-06-26 04:17] LABS: Hematocrit 37.5 % (37.0-47.0); Hemoglobin 13.3 g/dL (12.0-16.0); Mean Corp Hgb Conc. 35.5 g/dL (33.0-37.0); Mean Corpuscular Volume 94.0 fL (81.0-99.0); Platelet Count 176 10^3/uL (130-400); Red Cell Dist. Width 12.5 % (11.5-14.5)
[2025-06-26 04:30] LABS: APTT 112.7 Sec (23.4-35.0)
[2025-06-26 04:48] LABS: ALT (SGPT) 66 U/L (0-35); AST (SGOT) 37 U/L (14-36); Albumin 3.1 g/dl (3.5-5.0); Alkaline Phosphatase 80 U/L (38-126); Blood Urea Nitrogen 15 mg/dl (7-17); Calcium 9.4 mg/dl (8.4-10.2); Carbon Dioxide 24 mmol/L (22-30); Chloride 109 mmol/L (98-107); Estimated Creatinine Clearance 95 ml/min; Glucose 113 mg/dl (70-99); Potassium 3.9 mmol/L (3.5-5.1); Sodium 136 mmol/L (135-145); Total Protein 5.1 g/dl (6.3-8.2); eGFR > 60.00
[2025-06-26] MEDS: COZAAR 50 MG PO (07:27)
[2025-06-26] MEDS: LOW STRENGTH ASPIRIN 81 MG PO (07:27)
[2025-06-26] MEDS: NICODERM TRANSDERMAL 14 MG TRANSDERM (07:27)
--- NOTE | 2025-06-26 07:44 | W.PN.HOSP.TC ---
Today's Communication/Plan
-
See plan
Assessment / Plan
Assessment / Plan
Physical Exam
General: No Apparent Distress
Cardiac: Irregular Rhythm
Neuro: Awake, Alert, Oriented and AO x 3
Psych: Calm
Assessment/Plan
75yo F with HTN and HLD came with worsening generalized weakness especially on exertion started 5 days before admission. Patient noticed it started after 1 day of circumferential chest pain, found hypokinetic posterobasal wall and managed for late
presentation of RI, and complete AVB. Cardiology monitoring the rhythm before making decision for PPM. Had episode of Afib during catheterization, so will be started on Eliquis.
#Presentation with weakness and fatigue
#Chest Pain on 06/20/25
#NSTEMI -- Late presentation inferior RI, peak trop 22.4 -- RV infarct -- cath confirmed completed occlusion of mid RCA -- plan for medical mgmt
#Complete Heart Block
ASA, Plavix
Conduction block improving
Increase ambulation as tolerated
Continue to hold AV bhargavi blocking agents
Rhythm star monitor placement on 06/28/25, prior to discharge
Echo: ECHO 06/23/25: EF 54%, posterior basal wall hypokinetic, mild AR, trace MR, trace TR
Cardiology consult
Cath on 06/24/25 without stenting
Chest XR without significant abnormality
telemetry/IVU
HgbA1c 5.3
LDL 58
TSH WNL
Lyme disease neg
ESR WNL, CRP elevated, but non-specific - repeat as outpatient
#Elevated proBNP
-Given RV infarct with relative hypotension, no diuresis at this time
#Paroxysmal Atrial Fibrillation -- per cardiology, if patient's outpatient monitor shows atrial fibrillation could consider transition from DAPT therapy to aspirin plus NOAC.
-Patient did have episodes of brief A-fib while in [employer] -- but no recurrences since -- hold off on further Heparin Drip at this time
-If A-Fib comes back, then plan is to start oral anticoagulation
-Plan is for patient to be discharged on DAPT therapy at this time, since have not seen any atrial fibrillation on telemetry post heart catheterization
#Leukocytosis
#Elevated ddimer
Elevated ddimer most liekly reactive as no RH failure, no hypoxia and leukocytosis resolved
with no LE swelling - no indication for US LE
patient reported no fevers, no respiratory, abdominal or urinary symptoms
COVID-19, Influenza PCR and UA neg
Bcx NTD
#Hyponatremia
resolved
Uosm low
most likely 2/2 HCTZ
stop diuretics
#Elevated aminotransferases
Hepatitis profile neg
CPK WNL
outpatient follow up with PCP
#Essential HTN
hold CCB
Hold HCTZ
cont Losartan, follow BP
#HLD
LDL 58. Outpatient Rosuvastatin dose increased to 20mg QPM (was MWF at home)
#Nicotine dependency
Nicoderm PRN
counseled on smoking cessation
#Family History of CAD
DVT ppx Lovenox
FUll code
Anticipated Discharge: > 48 hours
Subjective/Interval History
-
Date of Service: June 26, 2025
Patient was seen and examined. She reported feeling well and denied any new symptoms or complaints.
Objective Data
-
Labs:
Laboratory Results
06/25/25 06/26/25 06/26/25
19:37 04:07 10:40
WBC 9.5
Hgb 13.3
Hct 37.5
Plt Count 176
APTT 107.7 H 112.7 H Pending
Sodium 136
Potassium 3.9
Chloride 109 H
Carbon Dioxide 24
BUN 15
Creatinine 0.6
Glucose 113 H
Calcium 9.4
Total Bilirubin 1.1
AST 37 H
ALT 66 H
Alkaline Phosphatase 80
Vital Signs:
Vital Signs
Temp Pulse Resp BP Pulse Ox
98.2 F 69 18 127/73 97
06/26/25 04:05 06/26/25 04:00 06/26/25 04:05 06/26/25 03:49 06/26/25 04:05
I&O
06/25/25 06/26/25 06/27/25
06:59 06:59 06:59
Intake Total 960 / 960
Output Total 300 / 300
Balance 660 / 660
--- NOTE | 2025-06-26 08:21 | W.PN.CARDCBS ---
Addendum entered and electronically signed by Luther Martinez MD 06/26/25 09:28:
Patient seen and examined
Conduction is recovering
She feels well
She wants to get out and walk as she has to walk the dog every day at home and we discussed allowing her to walk the halls on telemetry this in preparation of anticipated discharge Saturday so we can see if her heart rate will improve with
activity and if she can tolerate her improving AV block without symptoms at home
Exam:
HEENT normocephalic atraumatic
JVP 6
Cor regular
Lungs clear to station bilaterally
Abdomen soft nontender positive bowel sounds
Extremity no edema
Nonfocal neurologically
Assessment:
Presentation with weakness, fatigue
CP 06/20/25
Complete heart block, improving
Late presentation inferior [place], peak trop 22.4
Leukocytosis
Paroxysmal atrial fibrillation
Hyponatremia
mild LFT elevation
HTN
HLD
OA
Tobacco use
FH of CAD
ECHO 06/23/25: EF 54%, posterior basal wall hypokinetic, mild AR, trace MR, trace TR
Plan:
- Completed inferior wall ND
- Conduction recovering in no significant ventricular arrhythmias noted
- On review of telemetry, conduction continues to improve. Heart rates have been stable. Patient is asymptomatic. Continue to hold AV bhargavi blocking agents. At this point does not require pacemaker. Will continue to monitor and plan for rhythm
star monitor placement on Saturday prior to discharge. Increase ambulation to see if she can tolerate her conduction disease in anticipation of discharge
- Continue aspirin. will load with plavix. If her outpatient monitor shows atrial fibrillation could consider transition from DAPT therapy to aspirin plus NOAC. Will plan discharged on DAPT therapy at this moment as we have not seen any atrial
fibrillation on telemetry post heart catheterization.
- Will discontinue IV heparin. 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 will continue to monitor while admitted as well as while OP with rodent exterminator monitor. if recurrence, would plan to start
OAC.
-LDL 58. OP crestor dose increased to 20mg QPM (was MWF prior to admission)
-echo with results as above, EF preserved, discussed with patient 06/24
-proBNP elevated at 9430, however given RV infarct with relative hypotension, will hold off on diuresis at this time.
-continue OP cozaar, holding OP HCTZ
-LFTs improving
-smoking cessation encouraged
-Discussed with nursing.
Original Note:
Today's Communication / Plan
-
follow rhythm
no current indication for PPM
rhythm star monitor to be placed prior to DC, plan for Saturday
stop IV heparin. load with plavix
Impression / Plan
-
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
Assessment:
Presentation with weakness, fatigue
CP 06/20/25
Complete heart block, improving
Late presentation inferior [place], peak trop 22.4
Leukocytosis
Paroxysmal atrial fibrillation
Hyponatremia
mild LFT elevation
HTN
HLD
OA
Tobacco use
FH of CAD
ECHO 06/23/25: EF 54%, posterior basal wall hypokinetic, mild AR, trace MR, trace TR
Plan:
-Patient presents for evaluation of weakness and fatigue, after chest discomfort on 06/20/25.
-initial EKG with complete heart block and trop 22.4 so suspected late presentation inferior [place]
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 plan for medical mgmt
- On review of telemetry, conduction continues to improve. Heart rates have been stable. Patient is asymptomatic. Continue to hold AV bhargavi blocking agents. At this point does not require pacemaker. Will continue to monitor and plan for rhythm
star monitor placement on Saturday prior to discharge
- Continue aspirin. will load with plavix
- Will discontinue IV heparin. 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 will continue to monitor while admitted as well as while OP with long-term monitor. if recurrence, would plan to start
OAC.
-LDL 58. OP crestor dose increased to 20mg QPM (was MWF prior to admission)
-echo with results as above, EF preserved, discussed with patient 06/24
-proBNP elevated at 9430, however given RV infarct with relative hypotension, will hold off on diuresis at this time.
-continue OP cozaar, holding OP HCTZ
-LFTs improving
-smoking cessation encouraged
-Discussed with nursing.
Progress Note - Salesperson [employer]
Subjective
Date of Service: June 26, 2025
feeling well. no complaints of chest discomfort.
Objective
Labs:
06/26/25 04:07
06/26/25 04:07
Labs
Hgb 13.3 g/dL (12.0-16.0) 06/26/25 04:07
Hct 37.5 % (37.0-47.0) 06/26/25 04:07
Plt Count 176 10^3/uL (130-400) 06/26/25 04:07
PT 14.6 Sec (11.4-14.6) 06/23/25 11:37
PT Cancelled 06/23/25 11:37
INR 1.09 06/23/25 11:37
INR Cancelled 06/23/25 11:37
APTT 112.7 Sec (23.4-35.0) H 06/26/25 04:07
Sodium 136 mmol/L (135-145) 06/26/25 04:07
Potassium 3.9 mmol/L (3.5-5.1) 06/26/25 04:07
BUN 15 mg/dl (7-17) 06/26/25 04:07
Creatinine 0.6 mg/dL (0.6-1.0) 06/26/25 04:07
Glucose 113 mg/dl (70-99) H 06/26/25 04:07
Troponins
06/23/25 06/23/25 06/23/25
09:17 13:42 14:11
Troponin I 22.400 H* Cancelled 18.900 H*
06/23/25 06/24/25
23:02 05:17
Troponin I 19.700 H* 17.700 H*
Vital Signs and I&O:
Vital Signs
Temp Pulse Resp BP Pulse Ox
98.6 F 99 18 140/91 97
06/26/25 07:54 06/26/25 08:00 06/26/25 04:05 06/26/25 07:28 06/26/25 04:05
Vital Signs
Temp Pulse Resp BP Pulse Ox
98.6 F 99 18 140/91 97
06/26/25 07:54 06/26/25 08:00 06/26/25 04:05 06/26/25 07:28 06/26/25 04:05
Intake & Output
06/24/25 06/25/25 06/26/25 06/27/25
07:59 07:59 07:59 07:59
Intake Total 1276 / 1756 960 / 960
Output Total 475 / 775 300 / 300
Balance 801 / 981 660 / 660
Physical Exam
Physical Exam
GEN: No distress, awake, alert, oriented x3
HEENT: supple, anicteric, mmm, EOMI
LUNGS: CTA bilaterally, no wheezes/rales
CV: Irreg, S1/S2, no murmur
ABD: soft, BS+, NT/ND
EXT: No cyanosis, clubbing, edema
NEURO: Gross non-focal
SKIN: Warm, pink, dry. No rash
--- NOTE | 2025-06-26 09:25 | W.PN.CARDCBS ---
Today's Communication / Plan
-
Feels well
Impression / Plan
-
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
Assessment:
Presentation with weakness, fatigue
CP 06/20/25
Complete heart block, improving
Late presentation inferior [place], peak trop 22.4
Leukocytosis
Paroxysmal atrial fibrillation
Hyponatremia
mild LFT elevation
HTN
HLD
OA
Tobacco use
FH of CAD
ECHO 06/23/25: EF 54%, posterior basal wall hypokinetic, mild AR, trace MR, trace TR
Plan:
-Patient presents for evaluation of weakness and fatigue, after chest discomfort on 06/20/25.
-initial EKG with complete heart block and trop 22.4 so suspected late presentation inferior [place]
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 plan for medical mgmt
- On review of telemetry, conduction continues to improve. Heart rates have been stable. Patient is asymptomatic. Continue to hold AV bhargavi blocking agents. At this point does not require pacemaker. Will continue to monitor and plan for rhythm
star monitor placement on Saturday prior to discharge
- Continue aspirin. will load with plavix
- Will discontinue IV heparin. 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 will continue to monitor while admitted as well as while OP with jail monitor. if recurrence, would plan to start
OAC.
-LDL 58. OP crestor dose increased to 20mg QPM (was MWF prior to admission)
-echo with results as above, EF preserved, discussed with patient 06/24
-proBNP elevated at 9430, however given RV infarct with relative hypotension, will hold off on diuresis at this time.
-continue OP cozaar, holding OP HCTZ
-LFTs improving
-smoking cessation encouraged
-Discussed with nursing.
Progress Note - Revenue Officer
Subjective
Date of Service: June 26, 2025
Feels well
Objective
Labs:
06/26/25 04:07
06/26/25 04:07
Labs
Hgb 13.3 g/dL (12.0-16.0) 06/26/25 04:07
Hct 37.5 % (37.0-47.0) 06/26/25 04:07
Plt Count 176 10^3/uL (130-400) 06/26/25 04:07
PT 14.6 Sec (11.4-14.6) 06/23/25 11:37
PT Cancelled 06/23/25 11:37
INR 1.09 06/23/25 11:37
INR Cancelled 06/23/25 11:37
APTT 112.7 Sec (23.4-35.0) H 06/26/25 04:07
Sodium 136 mmol/L (135-145) 06/26/25 04:07
Potassium 3.9 mmol/L (3.5-5.1) 06/26/25 04:07
BUN 15 mg/dl (7-17) 06/26/25 04:07
Creatinine 0.6 mg/dL (0.6-1.0) 06/26/25 04:07
Glucose 113 mg/dl (70-99) H 06/26/25 04:07
Troponins
06/23/25 06/23/25 06/23/25
09:17 13:42 14:11
Troponin I 22.400 H* Cancelled 18.900 H*
06/23/25 06/24/25
23:02 05:17
Troponin I 19.700 H* 17.700 H*
Vital Signs and I&O:
Vital Signs
Temp Pulse Resp BP Pulse Ox
98.6 F 99 18 140/91 97
06/26/25 07:54 06/26/25 08:00 06/26/25 04:05 06/26/25 07:28 06/26/25 04:05
Vital Signs
Temp Pulse Resp BP Pulse Ox
98.6 F 99 18 140/91 97
06/26/25 07:54 06/26/25 08:00 06/26/25 04:05 06/26/25 07:28 06/26/25 04:05
Intake & Output
06/24/25 06/25/25 06/26/25 06/27/25
06:59 06:59 06:59 06:59
Intake Total 1276 / 1276 960 / 960
Output Total 475 / 475 300 / 300
Balance 801 / 801 660 / 660
--- NOTE | 2025-06-26 09:26 | W.PN.CARDCBS ---
Today's Communication / Plan
-
Feels well
Impression / Plan
-
Primary Tank Builder: none prior to admission
Assessment:
Presentation with weakness, fatigue
CP 06/20/25
Complete heart block, improving
Late presentation inferior [place], peak trop 22.4
Leukocytosis
Paroxysmal atrial fibrillation
Hyponatremia
mild LFT elevation
HTN
HLD
OA
Tobacco use
FH of CAD
ECHO 06/23/25: EF 54%, posterior basal wall hypokinetic, mild AR, trace MR, trace TR
Plan:
-Patient presents for evaluation of weakness and fatigue, after chest discomfort on 06/20/25.
-initial EKG with complete heart block and trop 22.4 so suspected late presentation inferior [place]
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 plan for medical mgmt
- On review of telemetry, conduction continues to improve. Heart rates have been stable. Patient is asymptomatic. Continue to hold AV bhargavi blocking agents. At this point does not require pacemaker. Will continue to monitor and plan for rhythm
star monitor placement on Saturday prior to discharge
- Continue aspirin. will load with plavix
- Will discontinue IV heparin. 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 will continue to monitor while admitted as well as while OP with jail monitor. if recurrence, would plan to start
OAC.
-LDL 58. OP crestor dose increased to 20mg QPM (was MWF prior to admission)
-echo with results as above, EF preserved, discussed with patient 06/24
-proBNP elevated at 9430, however given RV infarct with relative hypotension, will hold off on diuresis at this time.
-continue OP cozaar, holding OP HCTZ
-LFTs improving
-smoking cessation encouraged
-Discussed with nursing.
Progress Note - Tank Builder
Subjective
Date of Service: June 26, 2025
Objective
Labs:
06/26/25 04:07
06/26/25 04:07
Labs
Hgb 13.3 g/dL (12.0-16.0) 06/26/25 04:07
Hct 37.5 % (37.0-47.0) 06/26/25 04:07
Plt Count 176 10^3/uL (130-400) 06/26/25 04:07
PT 14.6 Sec (11.4-14.6) 06/23/25 11:37
PT Cancelled 06/23/25 11:37
INR 1.09 06/23/25 11:37
INR Cancelled 06/23/25 11:37
APTT 112.7 Sec (23.4-35.0) H 06/26/25 04:07
Sodium 136 mmol/L (135-145) 06/26/25 04:07
Potassium 3.9 mmol/L (3.5-5.1) 06/26/25 04:07
BUN 15 mg/dl (7-17) 06/26/25 04:07
Creatinine 0.6 mg/dL (0.6-1.0) 06/26/25 04:07
Glucose 113 mg/dl (70-99) H 06/26/25 04:07
Troponins
06/23/25 06/23/25 06/23/25
09:17 13:42 14:11
Troponin I 22.400 H* Cancelled 18.900 H*
06/23/25 06/24/25
23:02 05:17
Troponin I 19.700 H* 17.700 H*
Vital Signs and I&O:
Vital Signs
Temp Pulse Resp BP Pulse Ox
98.6 F 99 18 140/91 97
06/26/25 07:54 06/26/25 08:00 06/26/25 04:05 06/26/25 07:28 06/26/25 04:05
Vital Signs
Temp Pulse Resp BP Pulse Ox
98.6 F 99 18 140/91 97
06/26/25 07:54 06/26/25 08:00 06/26/25 04:05 06/26/25 07:28 06/26/25 04:05
Intake & Output
06/24/25 06/25/25 06/26/25 06/27/25
06:59 06:59 06:59 06:59
Intake Total 1276 / 1276 960 / 960
Output Total 475 / 475 300 / 300
Balance 801 / 801 660 / 660
[2025-06-26] MEDS: PLAVIX 300 MG PO (09:42)
--- NOTE | 2025-06-26 17:00 | PTCARENOTE ---
Pt received this am oob ad cherri with no c/o of any pain or sob or lightheadedness. Heparin discontinued as ordered after starting plavix. Remains in [facility], rate in the 70's to 90's.
[2025-06-26] MEDS: CRESTOR 20 MG PO (17:44)
[2025-06-26] MEDS: LOVENOX 40 MG SC (17:44)
[2025-06-26] MEDS: REMOVE NICOTINE PATCH 1 PATCH REMOVE (22:33)
--- NOTE | 2025-06-26 22:46 | PTCARENOTE ---
Received patient at change of shift. SR with PVCs on the monitor, HR in the 70s. Patient ambulating in the hallway with no chest discomfort or SOB. No complaints from pt at this time, call guajardo within reach.
[2025-06-27 04:23] VITALS: BP 144/74
[2025-06-27 05:04] LABS: Hematocrit 39.4 % (37.0-47.0); Hemoglobin 13.9 g/dL (12.0-16.0); Mean Corp Hgb Conc. 35.3 g/dL (33.0-37.0); Mean Corpuscular Volume 94.5 fL (81.0-99.0); Platelet Count 201 10^3/uL (130-400); Red Cell Dist. Width 12.7 % (11.5-14.5)
[2025-06-27 05:38] LABS: ALT (SGPT) 87 U/L (0-35); AST (SGOT) 51 U/L (14-36); Albumin 3.2 g/dl (3.5-5.0); Alkaline Phosphatase 79 U/L (38-126); Blood Urea Nitrogen 16 mg/dl (7-17); Calcium 9.5 mg/dl (8.4-10.2); Carbon Dioxide 24 mmol/L (22-30); Chloride 110 mmol/L (98-107); Estimated Creatinine Clearance 81 ml/min; Glucose 95 mg/dl (70-99); Potassium 4.2 mmol/L (3.5-5.1); Sodium 137 mmol/L (135-145); Total Protein 5.3 g/dl (6.3-8.2); eGFR > 60.00
[2025-06-27 08:19] VITALS: BP 139/84
[2025-06-27] MEDS: PLAVIX 75 MG PO (08:23)
[2025-06-27] MEDS: COZAAR 50 MG PO (08:23)
[2025-06-27] MEDS: NICODERM TRANSDERMAL 14 MG TRANSDERM (08:24)
[2025-06-27] MEDS: LOW STRENGTH ASPIRIN 81 MG PO (08:24)
--- NOTE | 2025-06-27 11:30 | W.PN.CARDCBS ---
Today's Communication / Plan
-
Nearing discharge Saturday with outpatient rhythm*and no current indication for permanent pacing
Impression / Plan
-
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
Assessment:
Presentation with weakness, fatigue
CP 06/20/25
Complete heart block, improving
Late presentation inferior [place], peak trop 22.4
Leukocytosis
Paroxysmal atrial fibrillation
Hyponatremia
mild LFT elevation
HTN
HLD
OA
Tobacco use
FH of CAD
ECHO 06/23/25: EF 54%, posterior basal wall hypokinetic, mild AR, trace MR, trace TR
Plan:
-Patient presents for evaluation of weakness and fatigue, after chest discomfort on 06/20/25.
-initial EKG with complete heart block and trop 22.4 so suspected late presentation inferior [place]
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 plan for medical mgmt
- On review of telemetry, conduction continues to improve. Heart rates have been stable. Patient is asymptomatic. Continue to hold AV bhargavi blocking agents. At this point does not require pacemaker. Will continue to monitor and plan for rhythm
star monitor placement on Saturday prior to discharge
- DAPT therapy
- Will discontinue IV heparin. 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 will continue to monitor while admitted as well as while OP with [facility] monitor. if recurrence, would plan to start
OAC.
-LDL 58. OP crestor dose increased to 20mg QPM (was MWF prior to admission)
-echo with results as above, EF preserved, discussed with patient 06/24
-proBNP elevated at 9430, however given RV infarct with relative hypotension, will hold off on diuresis at this time.
-continue OP cozaar, holding OP HCTZ
-LFTs improving
-smoking cessation encouraged
-Discussed with nursing.
Progress Note - Ems Helicopter Pilot
Subjective
Date of Service: June 27, 2025
Feels well
Objective
Labs:
06/27/25 04:28
06/27/25 04:28
Labs
Hgb 13.9 g/dL (12.0-16.0) 06/27/25 04:28
Hct 39.4 % (37.0-47.0) 06/27/25 04:28
Plt Count 201 10^3/uL (130-400) 06/27/25 04:28
PT 14.6 Sec (11.4-14.6) 06/23/25 11:37
PT Cancelled 06/23/25 11:37
INR 1.09 06/23/25 11:37
INR Cancelled 06/23/25 11:37
APTT Cancelled 06/26/25 10:40
Sodium 137 mmol/L (135-145) 06/27/25 04:28
Potassium 4.2 mmol/L (3.5-5.1) 06/27/25 04:28
BUN 16 mg/dl (7-17) 06/27/25 04:28
Creatinine 0.7 mg/dL (0.6-1.0) 06/27/25 04:28
Glucose 95 mg/dl (70-99) 06/27/25 04:28
Vital Signs and I&O:
Vital Signs
Temp Pulse Resp BP Pulse Ox
98.3 F 83 16 139/84 97
06/27/25 08:30 06/27/25 08:19 06/27/25 08:30 06/27/25 08:19 06/27/25 04:33
Vital Signs
Temp Pulse Resp BP Pulse Ox
98.3 F 83 16 139/84 97
06/27/25 08:30 06/27/25 08:19 06/27/25 08:30 06/27/25 08:19 06/27/25 04:33
Intake & Output
06/25/25 06/26/25 06/27/25 06/28/25
06:59 06:59 06:59 06:59
Intake Total 960 / 960
Output Total 300 / 300
Balance 660 / 660
Physical Exam
Physical Exam
����Physical Exam
���������������������General:��no apparent distress, not acutely ill
���������������������������Neck:��supple. no meningeal signs. normal psoterior pharynx
������������������������
���������������������������Heart:��s1/s2 regular rate and rhythm, no murmur. equal radial pulses.
��������������������������Lungs: ��no acute respiratory distress. clear bilaterally
����������������������Abdomen:�normal bowel sounds. not tender. no CVAT
��������������������������Neuro:��alert and oriented. no focal neurological deficits
������������������������������Skin: ��no rash
�����������������������Psychiatric:�well kept. interactive and cooperative
�����������������������Extremities:��no edema. no calf tenderness. negative homans. good distal pulses
��
�
[2025-06-27 11:45] VITALS: BP 119/84
--- NOTE | 2025-06-27 15:26 | W.PN.HOSP.TC ---
Today's Communication/Plan
-
See plan
Assessment / Plan
Assessment / Plan
Physical Exam
General: No Apparent Distress
Cardiac: Irregular Rhythm
Neuro: Awake, Alert, Oriented and AO x 3
Psych: Calm
Assessment/Plan
75yo F with HTN and HLD came with worsening generalized weakness especially on exertion started 5 days before admission. Patient noticed it started after 1 day of circumferential chest pain, found hypokinetic posterobasal wall and managed for late
presentation of MT, and complete AVB. Cardiology monitoring the rhythm before making decision for PPM. Had episode of Afib during catheterization, so will be started on Eliquis.
#Presentation with weakness and fatigue
#Chest Pain on 06/20/25
#NSTEMI -- Late presentation inferior [place], peak trop 22.4 -- RV infarct -- cath confirmed completed occlusion of mid RCA -- plan for medical mgmt
#Complete Heart Block
DAPT with ASA and Plavix
Conduction block improving
Increase ambulation as tolerated
Continue to hold AV bhargavi blocking agents
Rhythm star monitor placement on 06/28/25, prior to discharge
Echo: ECHO 06/23/25: EF 54%, posterior basal wall hypokinetic, mild AR, trace MR, trace TR
Cardiology consult
Cath on 06/24/25 without stenting
Chest XR without significant abnormality
telemetry/IVU
HgbA1c 5.3
LDL 58
TSH WNL
Lyme disease neg
ESR WNL, CRP elevated, but non-specific - repeat as outpatient
#Elevated proBNP
-Given RV infarct with relative hypotension, no diuresis at this time
#Paroxysmal Atrial Fibrillation -- per cardiology, if patient's outpatient monitor shows atrial fibrillation could consider transition from DAPT therapy to aspirin plus NOAC.
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
-If A-Fib comes back, then plan is to start oral anticoagulation
-Plan is for patient to be discharged on DAPT therapy at this time, since have not seen any atrial fibrillation on telemetry post heart catheterization
#Leukocytosis
#Elevated ddimer
Elevated ddimer most liekly reactive as no RH failure, no hypoxia and leukocytosis resolved
with no LE swelling - no indication for US LE
patient reported no fevers, no respiratory, abdominal or urinary symptoms
COVID-19, Influenza PCR and UA neg
Bcx NTD
#Hyponatremia
resolved
Uosm low
most likely 2/2 HCTZ
stop diuretics
#Elevated aminotransferases
Hepatitis profile neg
CPK WNL
outpatient follow up with PCP
#Essential HTN
Hold CCB
Hold HCTZ
Continue Losartan, follow BP
#HLD
LDL 58. Outpatient Rosuvastatin dose increased to 20mg QPM (was MWF at home)
#Nicotine dependency
Nicoderm PRN
counseled on smoking cessation
#Family History of CAD
DVT ppx Lovenox
FUll code
Anticipated Discharge: Within 24 hours
Subjective/Interval History
-
Date of Service: June 27, 2025
Patient was seen and examined. She was sitting comfortably in a chair. She denied any symptoms or complaints.
Objective Data
-
Labs:
Laboratory Results
06/27/25
04:28
WBC 7.8
Hgb 13.9
Hct 39.4
Plt Count 201
Sodium 137
Potassium 4.2
Chloride 110 H
Carbon Dioxide 24
BUN 16
Creatinine 0.7
Glucose 95
Calcium 9.5
Total Bilirubin 0.9
AST 51 H
ALT 87 H
Alkaline Phosphatase 79
Vital Signs:
Vital Signs
Temp Pulse Resp BP Pulse Ox
98.3 F 67 16 119/84 97
06/27/25 11:45 06/27/25 12:00 06/27/25 11:45 06/27/25 11:45 06/27/25 11:45
[2025-06-27 15:39] VITALS: BP 119/81
--- NOTE | 2025-06-27 17:00 | PTCARENOTE ---
Pt received this am in SR with periods of wenkebach. Rate in the 60's to 80's. OOB ad cherri, no c/o offered.
[2025-06-27] MEDS: CRESTOR 20 MG PO (17:19)
[2025-06-27] MEDS: LOVENOX 40 MG SC (17:28)
[2025-06-27 19:02] VITALS: BP 129/84
[2025-06-27 22:15] VITALS: BP 137/97
[2025-06-27] MEDS: SENOKOT-S 1 TABLET PO (22:18)
[2025-06-27] MEDS: REMOVE NICOTINE PATCH 1 PATCH REMOVE (22:18)
--- NOTE | 2025-06-27 23:06 | PTCARENOTE ---
Received patient at change of shift. SR with PVCs on the monitor, HR in the 70s. Patient reports no BM since 06/25, PRN stool softener administered as per pt request. No complaints from pt at this time, call guajardo within reach.
[2025-06-28 04:50] VITALS: BP 140/88
[2025-06-28 05:47] LABS: ALT (SGPT) 79 U/L (0-35); AST (SGOT) 41 U/L (14-36); Albumin 3.0 g/dl (3.5-5.0); Alkaline Phosphatase 71 U/L (38-126); Blood Urea Nitrogen 18 mg/dl (7-17); Calcium 9.7 mg/dl (8.4-10.2); Carbon Dioxide 25 mmol/L (22-30); Chloride 109 mmol/L (98-107); Estimated Creatinine Clearance 95 ml/min; Glucose 90 mg/dl (70-99); Magnesium 2.1 mg/dl (1.6-2.3); Potassium 4.1 mmol/L (3.5-5.1); Sodium 136 mmol/L (135-145); Total Protein 5.2 g/dl (6.3-8.2); eGFR > 60.00
[2025-06-28 07:35] VITALS: BP 133/81
[2025-06-28] MEDS: NICODERM TRANSDERMAL 14 MG TRANSDERM (08:50)
[2025-06-28] MEDS: PLAVIX 75 MG PO (08:52)
[2025-06-28] MEDS: LOW STRENGTH ASPIRIN 81 MG PO (08:52)
[2025-06-28] MEDS: COZAAR 50 MG PO (08:52)
[2025-06-28 11:40] VITALS: BP 126/84
--- NOTE | 2025-06-28 13:24 | PTCARENOTE ---
received patient at the change of shift with walking rounds. patient was already up OOB sitting in a chair. right radial and right fem. looked at, no ecchymosis, distal pulses palpable. monitor shows NSR with PVC's, VSS. patient stated, 'I think I
am going home on a monitor', talked to [place] ALLRED will be over later to put patient on monitor.
--- NOTE | 2025-06-28 13:53 | W.PN.CARDCBS ---
Addendum entered and electronically signed by Jg He MD 06/28/25 14:11:
I saw and examined the patient.
The EXECUTIVE SALES MANAGER or PA's note was reviewed and I agree with the note.
Comment: General: Well developed, well nourished in NAD.
Neck: Supple, no JVD, HJR, carotids +2 B/L, no bruits bilaterally.
Heart: Non displaced PMI, RRR, no murmurs, No S3, S4, no rubs.
Lungs: Clear to auscultation bilaterally, no wheeze, rhonchi, rubs bilaterally,
normal expiratory phase.
Extremities: No clubbing, cyanosis or edema bilaterally.
Neuro: Grossly nonfocal, awake, alert and oriented x3.
Stable cardiology status for discharge. heart monitor to be placed prior to discharge. Follow-up has been arranged
Original Note:
Today's Communication / Plan
-
10 day Rhythm Star monitor to be placed prior to d/c
Stable for d/c to home and cardiology f/u arranged
Cardiac discharge meds E scribed by me
Impression / Plan
-
PCP: Dr. Colin
Primary Station Engineer: none prior to admission, seen initially by Dr. Choi
Assessment:
Presentation with weakness, fatigue 06/23/25
Chest pain 06/20/25
Complete heart block, improving
Late presentation inferior HI, peak trop 22.4
Leukocytosis
Paroxysmal atrial fibrillation
Hyponatremia
mild LFT elevation
HTN
HLD
OA
Tobacco use
FH of CAD
ECHO 06/23/25: EF 54%, posterior basal wall hypokinetic, mild AR, trace MR, trace TR
Plan:
-Patient presented for evaluation of weakness and fatigue, after chest discomfort on 06/20/25.
-Patient's initial ECG was complete heart block and her troponin was 22.4 and trending down thereafter. 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
06/23/2025.
-Outpatient dose of losartan/HCTZ was changed to plain losartan 50 mg daily. HCTZ has been stopped at this point
-Patient was newly started on aspirin 81 mg daily and Plavix 75 mg daily.
-Patient is unable to tolerate BB due to CHB.
-CHB on admission, but HR has improved and by most recent ECG on 06/26/2025 that was reviewed by me the patient had SR with sinus arrhythmia and first-degree AV block. At this point we will continue to hold BB and all AV bhargavi blocking agents.
Patient does not currently require PPM. A 10-day rhythm star monitor is being placed on 06/28/2025
-Patient was noted to have paroxysmal A-fib at time of cardiac cath, but no recurrence. Will follow on the 10-day rhythm star monitor and if patient has recurrence can consider starting OAC at that time.
-LDL 58 and outpatient dose of Crestor increased to 20 mg daily, previously patient had been taking MWF only
-EF 54% by echo 06/23/2025
-Patient has been using nicotine patch to help with her smoking cessation efforts
-Patient is stable for discharge to home [id number]
Progress Note - Station Engineer
Subjective
Date of Service: June 28, 2025
Feels well and wants to go home
Objective
Labs:
06/27/25 04:28
06/28/25 04:54
Labs
Hgb 13.9 g/dL (12.0-16.0) 06/27/25 04:28
Hct 39.4 % (37.0-47.0) 06/27/25 04:28
Plt Count 201 10^3/uL (130-400) 06/27/25 04:28
PT 14.6 Sec (11.4-14.6) 06/23/25 11:37
PT Cancelled 06/23/25 11:37
INR 1.09 06/23/25 11:37
INR Cancelled 06/23/25 11:37
APTT Cancelled 06/26/25 10:40
Sodium 136 mmol/L (135-145) 06/28/25 04:54
Potassium 4.1 mmol/L (3.5-5.1) 06/28/25 04:54
BUN 18 mg/dl (7-17) H 06/28/25 04:54
Creatinine 0.6 mg/dL (0.6-1.0) 06/28/25 04:54
Glucose 90 mg/dl (70-99) 06/28/25 04:54
Vital Signs and I&O:
Vital Signs
Temp Pulse Resp BP Pulse Ox
98.6 F 71 16 133/81 97
06/28/25 11:33 06/28/25 11:00 06/28/25 11:33 06/28/25 08:52 06/28/25 11:33
Vital Signs
Temp Pulse Resp BP Pulse Ox
98.6 F 71 16 133/81 97
06/28/25 11:33 06/28/25 11:00 06/28/25 11:33 06/28/25 08:52 06/28/25 11:33
Physical Exam
Physical Exam
GEN: NAD
HEENT: EOMI
LUNGS: RA. No wheeze
CV: SR on tele
--- NOTE | 2025-06-28 14:23 | W.PN.HOSP.TC ---
Today's Communication/Plan
-
Discharge today
Assessment / Plan
Assessment / Plan
Physical Exam
General: No Apparent Distress
Cardiac: S1 and S2. RRR.
Neuro: Awake, Alert, Oriented and AO x 3
Psych: Calm
Assessment/Plan
75yo F with HTN and HLD came with worsening generalized weakness especially on exertion started 5 days before admission. Patient noticed it started after 1 day of circumferential chest pain, found hypokinetic posterobasal wall and managed for late
presentation of NJ, and complete AVB. Cardiology monitoring the rhythm before making decision for PPM. Had episode of Afib during catheterization, so will be started on Eliquis.
#Presentation with weakness and fatigue
#Chest Pain on 06/20/25
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
#Complete Heart Block
DAPT with ASA and Plavix
No beta summer due to complete heart block
Conduction block improving
Increase ambulation as tolerated
Continue to hold AV bhargavi blocking agents
Rhythm star monitor placement on 06/28/25, prior to discharge
Echo: ECHO 06/23/25: EF 54%, posterior basal wall hypokinetic, mild AR, trace MR, trace TR
Cardiology consult
Cath on 06/24/25 without stenting
Chest XR without significant abnormality
telemetry/IVU
HgbA1c 5.3
LDL 58
TSH WNL
Lyme disease neg
ESR WNL, CRP elevated, but non-specific - repeat as outpatient
#Elevated proBNP
-Given RV infarct with relative hypotension, no diuresis at this time
#Paroxysmal Atrial Fibrillation -- per cardiology, if patient's outpatient monitor shows atrial fibrillation could consider transition from DAPT therapy to aspirin plus NOAC.
-Patient did have episodes of brief A-fib while in [employer] -- but no recurrences since -- hold off on further Heparin Drip at this time
-If A-Fib comes back on 10-day rhythm star monitor, then plan is to start oral anticoagulation
-Plan is for patient to be discharged on DAPT therapy at this time, since have not seen any atrial fibrillation on telemetry post heart catheterization
#Leukocytosis
#Elevated D-dimer
Elevated ddimer most liekly reactive as no RH failure, no hypoxia and leukocytosis resolved
with no LE swelling - no indication for US LE
patient reported no fevers, no respiratory, abdominal or urinary symptoms
COVID-19, Influenza PCR and UA neg
Bcx NTD
#Hyponatremia
resolved
Uosm low
most likely 2/2 HCTZ
stop diuretics
#Elevated aminotransferases
Hepatitis profile neg
CPK WNL
outpatient follow up with PCP
#Essential Hypertension
Hold CCB
STOP HCTZ
Continue Losartan 50 mg daily, follow BP
#Hyperlipidemia
LDL 58. Outpatient Rosuvastatin dose increased to 20mg QPM (was MWF at home)
#Nicotine dependency
Nicoderm PRN
counseled on smoking cessation
#Family History of CAD
DVT ppx Lovenox
FUll code
More than 30 minutes spent in discharge including
Final examination of the patient
Summarizing hospital stay
Instructions for continuing care to all relevant caregivers
Preparation of discharge records, prescriptions, and referral forms
Total time spent (in minutes): 37
Anticipated Discharge: Today
Subjective/Interval History
-
Date of Service: June 28, 2025
Patient was seen and examined. She denied any symptoms or complaints, and she said that she would like to go home today.
Objective Data
-
Labs:
Laboratory Results
06/28/25
04:54
Sodium 136
Potassium 4.1
Chloride 109 H
Carbon Dioxide 25
BUN 18 H
Creatinine 0.6
Glucose 90
Calcium 9.7
Total Bilirubin 0.8
AST 41 H
ALT 79 H
Alkaline Phosphatase 71
Vital Signs:
Vital Signs
Temp Pulse Resp BP Pulse Ox
98.6 F 71 16 133/81 97
06/28/25 11:33 06/28/25 11:00 06/28/25 11:33 06/28/25 08:52 06/28/25 11:33
--- NOTE | 2025-06-28 14:52 | W.PN.UPDATE ---
Update Note
Progress Note Update
10-day rhythm star monitor applied by me, instructions given to patient we also talked about them. Patient is asking for names for PCP as an outpatient, information provided to patient. Patient stable for discharge to home. As noted previously I
E scribed all of her cardiac medications to her pharmacy for her already.
[2025-06-28 16:00] VITALS: BP 107/67
--- NOTE | 2025-06-28 16:34 | PTCARENOTE ---
D/C instructions given to patient, verbalizes understanding. also a list of primary physicians given to patient because she would like a closer physician to home. telemetry D/C'd, INT D/C'd, personal belongings packed and set home with patient. d/c
to home via wc accompanied by staff.
== END 2025-06-28 16:37 | disposition home or self-care (01) | DRG 281 ==
LOC: IVU 12:22
PROVIDERS: Emergency Medicine; Internal Medicine; Nurse Practitioner Adult Health; ADMITTING PHYSICIAN Internal Medicine Interventional Cardiology; ATTENDING PHYSICIAN Hospitalist; CONSULT PHYSICIAN Nuclear Medicine Nuclear Cardiology; EMERGENCY PHYSICIAN Emergency Medicine; FAMILY PHYSICIAN Internal Medicine
PROC: B2151ZZ Fluoroscopy of Left Heart using Low Osmolar Contrast (ICD-10-PCS; 2025-06-23)
PROC: B2101ZZ Fluoroscopy of Single Coronary Artery using Low Osmolar Contrast (ICD-10-PCS; 2025-06-23)
PROC: 4A023N7 Measurement of Cardiac Sampling and Pressure, Left Heart, Percutaneous Approach (ICD-10-PCS; 2025-06-23)
DX: I21.19 ST elevation (STEMI) myocardial infarction involving other coronary artery of inferior wall (principal); E87.1 Hypo-osmolality and hyponatremia; I44.2 Atrioventricular block, complete; I48.0 Paroxysmal atrial fibrillation; I25.10 Atherosclerotic heart disease of native coronary artery without angina pectoris; I10 Essential (primary) hypertension; E78.00 Pure hypercholesterolemia, unspecified; F17.200 Nicotine dependence, unspecified, uncomplicated; D72.829 Elevated white blood cell count, unspecified; Z11.52 Encounter for screening for COVID-19; Z79.899 Other long term (current) drug therapy; Z82.49 Family history of ischemic heart disease and other diseases of the circulatory system
CPT/HCPCS: 71045; 80048; 80053; 80061; 81003; 81015; 82248; 82550; 82570; 83036; 83735; 83880; 83935; 84300; 84443; 84484; 85025; 85027; 85347; 85379; 85610; 85652; 85730; 86140; 86618; 86704; 86706; 86803; 87086; 87340; 87502; 87811; 93005; 93306; 93458; 96374; 96376; 99152; 99153; 99291; C1894; Q9967

== ENCOUNTER → 2025-08-18 10:07 | Outpatient (REF) | payer MEDICARE, SELFPAY ==
[2025-08-18 11:58] LABS: INR 0.96; PT 13.3 Sec (11.4-14.6)
== END ==
LOC: REG 10:07
PROVIDERS: ATTENDING PHYSICIAN Internal Medicine Interventional Cardiology; FAMILY PHYSICIAN Student in an Organized Health Care Education/Training Program
DX: Z79.01 Long term (current) use of anticoagulants (principal); I48.0 Paroxysmal atrial fibrillation
CPT/HCPCS: 36415; 85610

== ENCOUNTER 2025-08-20 16:02 | Outpatient (RCR) | payer MEDICARE, SELFPAY | END 2025-08-20 23:59 | disposition home or self-care (01) | LOC: CRHB 16:02 | PROVIDERS: ATTENDING PHYSICIAN Internal Medicine Interventional Cardiology | DX: I21.4 Non-ST elevation (NSTEMI) myocardial infarction (principal); I25.2 Old myocardial infarction (principal); I25.10 Atherosclerotic heart disease of native coronary artery without angina pectoris | CPT/HCPCS: G0422; G0423 ==

== ENCOUNTER → 2025-08-23 09:33 | Outpatient (REF) | payer MEDICARE, SELFPAY ==
[2025-08-23 11:26] LABS: INR 1.82; PT 21.2 Sec (11.4-14.6)
== END ==
LOC: REG 09:33
PROVIDERS: ATTENDING PHYSICIAN Internal Medicine Interventional Cardiology; FAMILY PHYSICIAN Student in an Organized Health Care Education/Training Program
DX: I48.0 Paroxysmal atrial fibrillation (principal); Z79.01 Long term (current) use of anticoagulants
CPT/HCPCS: 36415; 85610

== ENCOUNTER → 2025-08-26 11:42 | Outpatient (REF) | payer MEDICARE, SELFPAY ==
[2025-08-26 13:37] LABS: INR 2.00; PT 23.1 Sec (11.4-14.6)
== END ==
LOC: REG 11:42
PROVIDERS: ATTENDING PHYSICIAN Internal Medicine Interventional Cardiology
DX: I48.0 Paroxysmal atrial fibrillation (principal); Z79.01 Long term (current) use of anticoagulants
CPT/HCPCS: 36415; 85610

== ENCOUNTER → 2025-09-02 12:26 | Outpatient (REF) | payer MEDICARE, SELFPAY ==
[2025-09-02 13:01] LABS: INR 1.86; PT 21.9 Sec (11.4-14.6)
== END ==
LOC: REG 12:26
PROVIDERS: ATTENDING PHYSICIAN Internal Medicine Interventional Cardiology; FAMILY PHYSICIAN Student in an Organized Health Care Education/Training Program
DX: I48.0 Paroxysmal atrial fibrillation (principal); Z79.01 Long term (current) use of anticoagulants
CPT/HCPCS: 36415; 85610

== ENCOUNTER → 2025-09-09 11:54 | Outpatient (REF) | payer MEDICARE, SELFPAY ==
[2025-09-09 12:57] LABS: INR 1.62; PT 19.7 Sec (11.4-14.6)
== END ==
LOC: REG 11:54
PROVIDERS: ATTENDING PHYSICIAN Internal Medicine Interventional Cardiology
DX: I48.0 Paroxysmal atrial fibrillation (principal); Z79.01 Long term (current) use of anticoagulants
CPT/HCPCS: 36415; 85610

== ENCOUNTER → 2025-09-13 12:37 | Outpatient (REF) | payer MEDICARE, SELFPAY ==
[2025-09-13 15:15] LABS: INR 1.95; PT 22.4 Sec (11.4-14.6)
== END ==
LOC: REG 12:37
PROVIDERS: ATTENDING PHYSICIAN Internal Medicine Interventional Cardiology
DX: I48.0 Paroxysmal atrial fibrillation (principal)
CPT/HCPCS: 36415; 85610

== ENCOUNTER 2025-09-14 10:39 | Outpatient (RCR) | payer MEDICARE, SELFPAY | END 2025-09-14 23:59 | disposition home or self-care (01) | LOC: CRHB 10:39 | PROVIDERS: ATTENDING PHYSICIAN Internal Medicine Interventional Cardiology | DX: I21.4 Non-ST elevation (NSTEMI) myocardial infarction (principal); I25.2 Old myocardial infarction; I25.10 Atherosclerotic heart disease of native coronary artery without angina pectoris | CPT/HCPCS: G0422; G0423 ==

== ENCOUNTER → 2025-09-20 11:55 | Outpatient (REF) | payer MEDICARE, SELFPAY ==
[2025-09-20 12:58] LABS: INR 2.50; PT 27.2 Sec (11.4-14.6)
== END ==
LOC: REG 11:55
PROVIDERS: ATTENDING PHYSICIAN Internal Medicine Interventional Cardiology; FAMILY PHYSICIAN Student in an Organized Health Care Education/Training Program
DX: I48.0 Paroxysmal atrial fibrillation (principal); Z79.01 Long term (current) use of anticoagulants
CPT/HCPCS: 36415; 85610

== ENCOUNTER → 2025-09-27 09:53 | Outpatient (REF) | payer MEDICARE, SELFPAY ==
[2025-09-27 11:31] LABS: INR 2.29; PT 25.5 Sec (11.4-14.6)
[2025-09-27 11:51] LABS: ALT (SGPT) 20 U/L (0-35); AST (SGOT) 24 U/L (14-36); Albumin 4.2 g/dl (3.5-5.0); Alkaline Phosphatase 75 U/L (38-126); Blood Urea Nitrogen 13 mg/dl (7-17); Calcium 9.8 mg/dl (8.4-10.2); Carbon Dioxide 30 mmol/L (22-30); Chloride 106 mmol/L (98-107); Glucose 87 mg/dl (70-99); HDL Cholesterol 52 mg/dl; LDL Cholesterol, Calculated 54 mg/dl; Potassium 4.3 mmol/L (3.5-5.1); Sodium 139 mmol/L (135-145); Total Protein 6.6 g/dl (6.3-8.2); Very Low Density Lipoprotein 15 mg/dl (0-30); eGFR > 60.00
== END ==
LOC: REG 09:53
PROVIDERS: ATTENDING PHYSICIAN Internal Medicine Interventional Cardiology; FAMILY PHYSICIAN Student in an Organized Health Care Education/Training Program; OTHER PHYSICIAN Physician Assistant Medical
DX: Z79.01 Long term (current) use of anticoagulants (principal); I48.0 Paroxysmal atrial fibrillation; I21.4 Non-ST elevation (NSTEMI) myocardial infarction; I10 Essential (primary) hypertension; E78.5 Hyperlipidemia, unspecified
CPT/HCPCS: 36415; 80053; 80061; 85610

== ENCOUNTER → 2025-10-11 10:27 | Outpatient (REF) | payer MEDICARE, SELFPAY ==
[2025-10-11 12:34] LABS: INR 1.99; PT 22.8 Sec (11.4-14.6)
== END ==
LOC: REG 10:27
PROVIDERS: ATTENDING PHYSICIAN Internal Medicine Interventional Cardiology; FAMILY PHYSICIAN Student in an Organized Health Care Education/Training Program
DX: I48.0 Paroxysmal atrial fibrillation (principal); Z79.01 Long term (current) use of anticoagulants
CPT/HCPCS: 36415; 85610

== ENCOUNTER 2025-10-20 11:51 | Outpatient (RCR) | payer MEDICARE, SELFPAY | END 2025-10-20 23:59 | disposition home or self-care (01) | LOC: CRHB 11:51 | PROVIDERS: ATTENDING PHYSICIAN Internal Medicine Interventional Cardiology | DX: I21.4 Non-ST elevation (NSTEMI) myocardial infarction (principal); I25.2 Old myocardial infarction; I25.10 Atherosclerotic heart disease of native coronary artery without angina pectoris | CPT/HCPCS: G0422; G0423 ==